=== PATIENT | male | born 1950 | race Caucasian/White ===

== ENCOUNTER 2019-10-25 12:24 | Emergency (ER) | payer MEDICAID, SELFPAY ==
[2019-10-25] VITALS (9 sets, daily range): BP systolic 196–224; BP diastolic 85–145; PULSE 95–163; RESP 18–35; TEMP 36.6; O2SAT 97–100; BMI 15.9
--- NOTE | 2019-10-25 12:55 | CT_ITS ---
WS: [id number] CT ABDOMEN PELVIS TECHNIQUE: Contrast-enhanced CT of the abdomen and pelvis with coronal and sagittal reformatted image s. CLINICAL INFORMATION: diarrhea, abdominal pain COMPARISON: None. DLP: 436.[address] scans at [facility] use at least one of these dose optimization techniques: automat ed exposure control; mA and/or kV adjustment per patient size (includes targeted exams where dose is matched to clinical indication); or iterative reconstruction. FINDINGS: Normal liver. Gallbladder is contracted. Normal portal vein and splenic vein. Right adrenal gland is normal. Normal right renal parenchymal enhancement. Lung bases are well aerated. Small esophageal hiatal hernia. Normal spleen. Delayed nephrogram left kidney with moderate left hydr onephrosis and ureterectasis. Diffuse inflammatory stranding and thickening involving the sigmoid col on suspicious for acute diverticulitis. Enhancing lobulated collection left lower pelvis measures 4.2 x 3.6 cm suspicious for diverticular abscess. This has a complex appearance and exophytic neoplasm i s not excluded. Follow-up with oral contrast may be helpful. Constellation of findings in the pelvis appear to obstruct the left ureter. Upper abdominal aneurysm with mural thrombus measures approximately 3.2 x 2.7 cm. Dense iliac calcification. Diffuse thickenin g of the bladder with submucosal enhancement likely reactive. Calcified enlarged prostate. Heterogene ous prostate enhancement. Prostate measures 3.2 x 4.1 CM. IMPRESSION: 1. Diffuse thickening with enhancement and inflammatory stranding involving the sigmoid colon suspic ious for acute diverticulitis. 2. Lobulated enhancing collection within the left lower pelvis adjacent to the sigmoid colon suspici ous for abscess. This measures 4.2 x 3.6 cm. Exophytic neoplasm not entirely excluded. Follow-up with oral contrast may be helpful. 3. Moderate left hydronephrosis with delayed nephrogram. Left ureter appears to be obstructed by the above-described pelvic process. 4. Diffuse thickening of the bladder wall likely reactive. 5. Enhancing slightly enlarged prostate measuring 3.2 x 4.1 CM. Recommend correlation PSA. 6. 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 Notified Katarzyna Olivera MD [facility] [place] 10/25/2019 3:15 PM.
--- NOTE | 2019-10-25 12:56 | W.ED.GENADLT ---
HPI - General Adult General: Chief complaint: General Medical Stated complaint: H/A, FALL, LEG PAIN Time Seen by Provider: 10/25/19 12:44 History of Present Illness: HPI narrative: Patient is a poor historian. He presents with diarrhea that started about 10 days ago. He has watery stools and is unable to tell me how many a day but he says they are several. No fever, no vomiting, no nausea, no sick contacts. MD complaint: abdominal pain, diarrhea Onset (ago): day(s) (10) Location: abdomen Radiation: non-radiation Severity: moderate Quality: other (difficult to describe) Associated symptoms: Reports malaise; Deny chest pain, confusion, cough, diaphoresis, decreased appetite, dyspnea, fevers/chills, headache(s), nausea, rash, palpitations, seizures, short of breath, vomiting or weakness Review of Systems General: Reports: 10 or more systems reviewed and unremarkable except in HPI and below Const: Reports: malaise; Denies: diaphoresis Eyes: Denies: change in vision or blurry vision ENMT: Denies: throat pain, enlarged tonsils, painful swallowing, hoarseness, mouth pain or swelling of lips/tongue Card: Denies: chest pain or palpitations Resp: Denies: shortness of breath GI: Denies: nausea or vomiting : Denies: flank pain, painful urination, urinary frequency, urinary urgency or urinary hesitancy Musc: Denies: neck pain, back pain or extremity swelling Skin/Breast: Denies: rash, itching or redness Neuro: Denies: headache or confusion Endo: Denies: excessive urination, excessive thirst or tired all the time [facility] ED PFSH: Social History Smoking and tobacco status: current every day smoker Physical Exam Const: COMMON NORMALS: no apparent distress, average body habitus, oriented x3, no limitations, healthy appearing, alert and well nourished HENMT: COMMON NORMALS: normocephalic, head/scalp atraumatic and moist oral mucous membranes HEAD & SCALP: normocephalic and atraumatic Eye: COMMON NORMALS: PERRL, EOMs intact bilaterally, conjunctivae normal and no scleral icterus CONJUNCTIVA: Yes conjunctivae normal PUPIL: Yes PERRL Neck/C-Spine: COMMON NORMALS: full ROM, supple, no meningeal signs, no JVD and no carotid bruits Chest: COMMONS NORMALS: inspection of chest normal and palpation of chest normal Resp: COMMON NORMALS: normal respiratory effort, no retractions, no use of accessory muscles, clear to auscultation bilaterally and percussion normal AUSCULTATION: clear to auscultation bilaterally PERCUSSION: percussion normal Cardio: COMMON NORMALS: no JVD, regular rate, regular rhythm, S1 normal heart sound, S2 normal heart sound, no gallops, no clicks, no murmurs, no rub and peripheral pulses 2+ throughout RATE: regular rate RHYTHM: regular rhythm HEART SOUNDS: S1 normal and S2 normal PERIPHERAL PULSES: pulses 2+ throughout GI: COMMON NORMALS: normal to inspection, nondistended, normoactive bowel sounds, no masses and no bruits PALPATION: Yes tender and Yes guarding : COMMON NORMALS: Yes no CVA tenderness BLADDER/KIDNEY EXAM: Yes no CVA tenderness Back/Pelvis: COMMON NORMALS: no CVA tenderness Extremity: COMMON NORMALS: normal to inspection, full ROM, normal capillary refill, no calf tenderness and no pedal edema Neuro: COMMON NORMALS: oriented x3 SENSORIUM/ORIENTATION: Yes alert MENINGEAL SIGNS: Yes no meningeal signs Skin: COMMON NORMALS: no rashes or lesions noted, no wounds, skin turgor normal, no jaundice, no petechiae and no mottling GENERAL SKIN EXAM: no rashes or lesions noted and turgor normal Course Consultations: Consultation #1: Dr. Luke, hospitalist. Since our urologist is not stonemason apprentice and is out of town the patient will need to be transferred. Time: 15:26 Consultation #2: Dr. Ferguson, general surgeon at [facility] in [place]. He kindly accepted the patient to his service. Dr. Hinton will be the consulting urologist. Time: 16:28 Vital Signs: Vital signs: Vital Signs Temperature 97.8 F 10/25/19 12:30 Pulse Rate 163 H 10/25/19 18:20 Respiratory Rate 30 H 10/25/19 18:19 Blood Pressure 221/145 10/25/19 17:01 Pulse Oximetry 99 10/25/19 18:10 MDM - General Adult MDM Narrative: Medical decision making narrative: 68-year-old gentleman who presents to the emergency department with diarrhea and abdominal pain. On evaluation he has a complicated sigmoid diverticulitis with an abscess formation and inflammatory reaction causing an obstruction of his left ureter with moderate to severe left hydronephrosis. He also has a urinary tract infection. He needs evaluation by general surgeon and a urologist, however we do not have a urologist here in this facility at this time and so he is being transferred to [facility] in [place]. Lab Data: Labs: Lab Results 10/25/19 10/25/19 10/25/19 Range/Units 13:11 13:11 13:11 WBC 11.5 H (4.0-10.0) 10^3/ uL RBC 4.32 (4.1-5.3) 10^6/u L Hgb 12.0 (11.7-16.6) g/dL Hct 36.9 L (42.0-52.0) % MCV 85.4 (80-94) fL MCH 27.8 L (28.0-34.0) pg MCHC 32.5 (30.0-36.0) g/dL RDW 13.1 (12.1-15.1) % Plt Count 574 H (130-400) 10^3/c mm MPV 9.1 (7.4-10.4) fL Neut % (Auto) 83.0 % Lymph % (Auto) 10.4 % [place] % (Auto) 6.0 % Eos % (Auto) 0.1 % Baso % (Auto) 0.2 % Neut # (Auto) 9.5 H (1.8-7.7) 10^3/u L Lymph # (Auto) 1.2 (0.8-4.8) 10^3/u L [place] # (Auto) 0.7 (0.2-0.9) 10^3/u L Eos # (Auto) 0.0 (0.0-0.8) 10^3/u L Baso # (Auto) 0.0 (0.0-0.1) 10^3/u L Nucleated RBC % (a uto) 0 % Nucleated RBCs # 0.0 /100WBC Sodium 126 L (136-145) mmol/L Potassium 3.3 L (3.5-5.1) mmol/L Chloride 83 L (98-107) mmol/L Carbon Dioxide 26 (22-29) mmol/L Anion Gap 20.3 H (5-19) BUN 14 (8-23) mg/dL Creatinine 1.2 (0.7-1.2) mg/dL GFR Calculation 60.6 L (90-130) mL/min Glucose 115 (65-115) mg/dL Calculated Osmolal ity 259 L (285-295) mOsm/k g Lactate 1.5 (0.5-2.2) mmol/L Calcium 9.6 (8.5-10.5) mg/dL Total Bilirubin 0.7 (0.15-1.2) mg/dL AST 18 (0-40) U/L ALT 8 (0-41) U/L Alkaline Phosphata se 144 H (40-130) IU/L Total Protein 8.5 (6.6-8.7) g/dL Albumin 3.9 (3.5-5.2) g/dL Globulin 4.6 (1.3-4.6) g/dL Lipase 15 (13-60) U/L Urine Color (Yellow) Urine Appearance (CLEAR) Urine pH (5-7) Ur Specific Gravit y (1.005-1.030) Urine Protein (Negative) Urine Glucose (UA) (Normal) Urine Ketones (Negative) Urine Blood (Negative) Urine Nitrate (Negative) Urine Bilirubin (NEGATIVE) Urine Urobilinogen (Negative) mg/dL Ur Leukocyte Lad[place] ase (Negative) Urine RBC (0-2) /hpf Urine WBC (0-5) /hpf Ur Squamous Epith Cells (0-5) Amorphous Sediment Urine Bacteria (NONE) 10/25/19 Range/Units 14:30 WBC (4.0-10.0) 10^3/ uL RBC (4.1-5.3) 10^6/u L Hgb (11.7-16.6) g/dL Hct (42.0-52.0) % MCV (80-94) fL MCH (28.0-34.0) pg MCHC (30.0-36.0) g/dL RDW (12.1-15.1) % Plt Count (130-400) 10^3/c mm MPV (7.4-10.4) fL Neut % (Auto) % Lymph % (Auto) % [place] % (Auto) % Eos % (Auto) % Baso % (Auto) % Neut # (Auto) (1.8-7.7) 10^3/u L Lymph # (Auto) (0.8-4.8) 10^3/u L [place] # (Auto) (0.2-0.9) 10^3/u L Eos # (Auto) (0.0-0.8) 10^3/u L Baso # (Auto) (0.0-0.1) 10^3/u L Nucleated RBC % (a uto) % Nucleated RBCs # /100WBC Sodium (136-145) mmol/L Potassium (3.5-5.1) mmol/L Chloride (98-107) mmol/L Carbon Dioxide (22-29) mmol/L Anion Gap (5-19) BUN (8-23) mg/dL Creatinine (0.7-1.2) mg/dL GFR Calculation (90-130) mL/min Glucose (65-115) mg/dL Calculated Osmolal ity (285-295) mOsm/k g Lactate (0.5-2.2) mmol/L Calcium (8.5-10.5) mg/dL Total Bilirubin (0.15-1.2) mg/dL AST (0-40) U/L ALT (0-41) U/L Alkaline Phosphata se (40-130) IU/L Total Protein (6.6-8.7) g/dL Albumin (3.5-5.2) g/dL Globulin (1.3-4.6) g/dL Lipase (13-60) U/L Urine Color Yellow (Yellow) Urine Appearance Turbid (CLEAR) Urine pH 6.5 (5-7) Ur Specific Gravit y 1.015 (1.005-1.030) Urine Protein 1+ H (Negative) Urine Glucose (UA) Norm (Normal) Urine Ketones 1+ H (Negative) Urine Blood 3+ H (Negative) Urine Nitrate Positive H (Negative) Urine Bilirubin 1+ H (NEGATIVE) Urine Urobilinogen 12 H (Negative) mg/dL Ur Leukocyte Ladonna ase 2+ H (Negative) Urine RBC 25-40 H (0-2) /hpf Urine WBC 80-100 H (0-5) /hpf Ur Squamous Epith Cells None (0-5) Amorphous Sediment 2+ Urine Bacteria 4+ H (NONE) Imaging Data^: CT Abd/Pel: Radiologist's impression: [facility] [address] [place] [address] CT Scan Report Signed Patient: Isaak Soriano #: [id number] : 3Acct#:[id number] Age/Sex: 68 / MADM Date: 10/25/19 Loc: ERRoom/Bed: Attending Dr: Ordering Provider/Ordering MD: Katarzyna Olivera MD, [facility] Date of Service: 10/25/19 Procedure(s): CT abdomen pelvis w con* [id number] Accession Number(s): [id number] Report Number: [id number] WS: [id number] CT ABDOMEN PELVIS TECHNIQUE: Contrast-enhanced CT of the abdomen and pelvis with coronal and sagittal reformatted images. CLINICAL INFORMATION: diarrhea, abdominal pain COMPARISON: None. DLP: 436.[address] scans at [facility] use at least one of these dose optimization techniques: automated exposure control; mA and/or kV adjustment per patient size (includes targeted exams where dose is matched to clinical indication); or iterative reconstruction. FINDINGS: Normal liver. Gallbladder is contracted. Normal portal vein and splenic vein. Right adrenal gland is normal. Normal right renal parenchymal enhancement. Lung bases are well aerated. Small esophageal hiatal hernia. Normal spleen. Delayed nephrogram left kidney with moderate left hydronephrosis and ureterectasis. Diffuse inflammatory stranding and thickening involving the sigmoid colon suspicious for acute diverticulitis. Enhancing lobulated collection left lower pelvis measures 4.2 x 3.6 cm suspicious for diverticular abscess. This has a complex appearance and exophytic neoplasm is not excluded. Follow-up with oral contrast may be helpful. Constellation of findings in the pelvis appear to obstruct the left ureter. Upper abdominal aneurysm with mural thrombus measures approximately 3.2 x 2.7 cm. Dense iliac calcification. Diffuse thickening of the bladder with submucosal enhancement likely reactive. Calcified enlarged prostate. Heterogeneous prostate enhancement. Prostate measures 3.2 x 4.1 CM. IMPRESSION: 1. Diffuse thickening with enhancement and inflammatory stranding involving the sigmoid colon suspicious for acute diverticulitis. 2. Lobulated enhancing collection within the left lower pelvis adjacent to the sigmoid colon suspicious for abscess. This measures 4.2 x 3.6 cm. Exophytic neoplasm not entirely excluded. Follow-up with oral contrast may be helpful. 3. Moderate left hydronephrosis with delayed nephrogram. Left ureter appears to be obstructed by the above-described pelvic process. 4. Diffuse thickening of the bladder wall likely reactive. 5. Enhancing slightly enlarged prostate measuring 3.2 x 4.1 CM. Recommend correlation PSA. 6. 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 Notified Katarzyna Olivera MD [facility] at 10/25/2019 3:15 PM. Dictated By:Marcial Young MD Signed By:Marcial Young MDSigned Date/Time:10/25/19 1518 DD/ 1447 EKG Data^: EKG 1: Attestation: I personally reviewed and interpreted this EKG as follows: EKG interpretation date: 10/25/19 EKG interpretation time: 18:46 Prior EKG tracings: not available for review Interpretation: sinus tachycardia HR [address] elevation or depression. Discharge Plan Discharge Patient Disposition: Xfer Short-Term Hosp Clinical Impression: Obstruction of left ureter, Acute pyelonephritis, Acute hyponatremia, Acute hypokalemia Diverticulitis of intestine with abscess Qualifiers: Diverticulitis site: large intestine Diverticulitis bleeding: without bleeding Qualified Code(s): K57.20 - Diverticulitis of large intestine with perforation and abscess without bleeding Hydronephrosis Qualifiers: Hydronephrosis type: other Qualified Code(s): N13.39 - Other hydronephrosis Condition: Stable Discharge Orders: Transfer Out of Facility (Order); Ordered 10/25/19 Ordered By: Katarzyna Olivera Discharge Date/Time: 10/25/19 18:50 Coding Level of Care Code ED Modeling Manager for Chg Fwd Exam Comprehensive
[2019-10-25 13:38] LABS: Basophils % 0.2 %; Eosinophils % 0.1 %; Hematocrit 36.9 % (42.0-52.0); Lymphocytes # 1.2 10^3/uL (0.8-4.8); Lymphocytes % 10.4 %; Mean Corpuscular HGB Conc 32.5 g/dL (30.0-36.0); Mean Corpuscular Hemoglobin 27.8 pg (28.0-34.0); Mean Corpuscular Volume 85.4 fL (80-94); Mean Platelet Volume 9.1 fL (7.4-10.4); Monocytes # 0.7 10^3/uL (0.2-0.9); Neutrophils # 9.5 10^3/uL (1.8-7.7); Nucleated Red Blood Cells % 0 %; Platelet Count 574 10^3/cmm (130-400); Red Blood Count 4.32 10^6/uL (4.1-5.3); Red Cell Distribution Width 13.1 % (12.1-15.1); White Blood Count 11.5 10^3/uL (4.0-10.0)
[2019-10-25 14:00] LABS: Alanine Aminotransferase 8 U/L (0-41); Albumin Level 3.9 g/dL (3.5-5.2); Alkaline Phosphatase 144 IU/L (40-130); Anion Gap 20.3 (5-19); Aspartate Amino Transferase 18 U/L (0-40); Blood Urea Nitrogen 14 mg/dL (8-23); Calcium 9.6 mg/dL (8.5-10.5); Carbon Dioxide 26 mmol/L (22-29); Chloride 83 mmol/L (98-107); Globulin 4.6 g/dL (1.3-4.6); Glomerular Filtration Rate 60.6 mL/min (90-130); Glucose 115 mg/dL (65-115); Lipase 15 U/L (13-60); Osmolality Calculated 259 mOsm/kg (285-295); Potassium 3.3 mmol/L (3.5-5.1); Sodium 126 mmol/L (136-145); Total Bilirubin 0.7 mg/dL (0.15-1.2); Total Protein 8.5 g/dL (6.6-8.7)
[2019-10-25 14:01] LABS: Lactate (Lactic Acid level) 1.5 mmol/L (0.5-2.2)
[2019-10-25] MEDS: iohexol 300 mg/mL 100 mL Btl IV (14:21)
--- NOTE | 2019-10-25 14:21 | PC.NURSE ---
pt transported to CT by stretcher with tech
--- NOTE | 2019-10-25 14:38 | PC.SOCIAL ---
Call received by Christie at [facility]. She verbalized being told that patient has not been seen by provider in a long time and he is not doing well. This contact mentioned he would possibly want Hospice however, pt would need to have a diagnosis that qualifies. If patient is admitted CM/ SS will follow up once more information is obtained and verified.
[2019-10-25 14:46] LABS: Glucose Urine UA Norm (Normal); Ketones Urine 1+ (Negative); Protein Urine 1+ (Negative); Specific Gravity, Urine 1.015 (1.005-1.030); Urine Appearance Turbid (CLEAR); Urine Color Yellow (Yellow); pH Urine 6.5 (5-7)
[2019-10-25 14:47] LABS: Add Urine Microscopic? YES; Bilirubin Urine 1+ (NEGATIVE); Blood Urine 3+ (Negative); Leukocyte Esterase Urine 2+ (Negative); Nitrate Urine Positive (Negative); Urobilinogen Urine 12 mg/dL (Negative)
[2019-10-25] MEDS: sodium chloride 0.9% 1,000 ML 999 ML IV (14:56)
[2019-10-25 14:59] LABS: Add Urine Culture? Yes; Amorphous Sediment Urine 2+; Bacteria Urine 4+; RBC Urine 25-40 /hpf (0-2); WBC Urine 80-100 /hpf (0-5)
[2019-10-25] MEDS: ciprofloxacin 400 MG/200 ML PREMIX 200 MG IV (15:45)
[2019-10-25] MEDS: hyDRALAzine 20 mg/mL INJ 1 mL 10 MG IVP (17:05)
[2019-10-25] MEDS: metroNIDAZOLE IV 500 MG/100 ML PREMIX 100 MG IV (17:05)
--- NOTE | 2019-10-25 17:05 | PC.NURSE ---
pt up to commode with diarrhea. Pt appeared very out of breath. Nurse placed pt on traffic monitor specialist and pt in Afib with RVR with heartrate of 155. ED provider notified and in room. Pt placed on NC 4L
[2019-10-25] MEDS: ipratropium-albuterol 3 mL Neb INHALATION (18:10)
--- NOTE | 2019-10-25 18:18 | ECG_ITS ---
Measurements Intervals [place] Rate: 144 P: 79 TN: 124 QRS: 64 QRSD: 81 T: 82 QT: 342 QTc: 530 SINUS TACHYCARDIA, POSSIBLE ATRIAL FLUTTER NONSPECIFIC T-WAVE ABNORMALITY ABNORMAL RHYTHM ECG INTERPRETATION BASED ON A DEFAULT AGE OF 40 YEARS No previous ECG available for comparison Electronically Signed On 10-26-2019 17:00:10 CDT by Arden Posada M.D. [email or web address]
== END 2019-10-25 18:50 | disposition short-term general hospital (02) ==
PROVIDERS: Emergency Provider Family Medicine
DX: N13.1 Hydronephrosis with ureteral stricture, not elsewhere classified (principal); N10 Acute pyelonephritis; E87.1 Hypo-osmolality and hyponatremia; E87.6 Hypokalemia; K57.20 Diverticulitis of large intestine with perforation and abscess without bleeding; F17.200 Nicotine dependence, unspecified, uncomplicated
CPT/HCPCS: 12345; 74177; 80053; 81001; 83605; 83690; 85025; 87077; 87086; 87186; 93005; 94640; 96360; 96361; 96365; 96368; 96375; 99284; 99285; A9270; J0360; J0744; J3490; J7030; Q9967; S0030

== ENCOUNTER 2019-11-21 13:13 | Inpatient (IN) | payer MEDICAID, SELFPAY ==
[2019-11-21] VITALS (34 sets, daily range): BP systolic 97–158; BP diastolic 57–99; PULSE 52–68; RESP 0–26; TEMP 36.7; O2SAT 98–100; BMI 16.2
--- NOTE | 2019-11-21 13:32 | ECG_ITS ---
Measurements Intervals [place] Rate: 59 P: 82 WV: 139 QRS: 24 QRSD: 80 T: 234 QT: 542 QTc: 541 SINUS BRADYCARDIA POSSIBLE RIGHT ATRIAL ENLARGEMENT [0.25mV P WAVE] ANTERIOR MYOCARDIAL INFARCTION , PROBABLY RECENT [40+ ms Q WAVE AND/OR ST/T ABNO ABNORMALITY IN V3/V4] INFERIOR MYOCARDIAL INFARCTION , OF INDETERMINATE AGE [40+ ms Q WAVE AND/OR ST/T ABNORMALITY IN II/aVF] Compared to ECG 10/25/2019 18:46:42 Myocardial infarct finding now present T-wave abnormality no longer present Electronically Signed On 11-21-2019 17:12:58 CDT by Nik Ashraf M.D. [id number] f
--- NOTE | 2019-11-21 13:32 | XR_ITS ---
WS: [id number] XR chest 1V portable [id number] REASON FOR EXAM: chest pain FINDINGS: Chronic obstructive pulmonary disease findings are noted. The heart is not enlarged there is arteriosclerotic changes seen. The emphysema this changes have progressed since June 06, 2013. XR/XR chest 1V portable [id number] IMPRESSION: Increased chronic obstructive pulmonary disease. Arteriosclerotic changes. No pneumothorax is seen.
[2019-11-21] MEDS: clopidogrel 300 mg Tablet 600 MG PO (13:40)
[2019-11-21] MEDS: heparin 5,000 unit/mL INJ 1 mL 2900 UNIT IVP (13:41)
--- NOTE | 2019-11-21 13:42 | ED_ITS ---
Documented by User: Jerome Brothers DO 11/21/19 15:16 HPI - Chest Pain General: Chief Complaint: Chest Pain Stated Complaint: CHEST PAIN Time Seen by Provider: 11/21/19 13:14 History of Present Illness: HPI narrative: 68-year-old male comes in complaining of chest pain states chest pain started yesterday around 1:00. Is been intermittent since then he denies any dyspnea he is not had any fevers been very nauseous but no vomiting or diarrhea he is in the care home about a month ago he was here at the hospital and was transferred to an outside facility he had a diverticulitis with an abscess and obstructed ureter ultimately ended up getting a colostomy. He has no previous history of coronary artery disease. He did get nauseous with this but no shortness of breath. He still is having some chest discomfort. Associated symptoms: Reports nausea; Deny abdominal pain, dyspnea, fever(s) or vomiting Review of Systems Const: Denies: fever, chills, body aches, change in appetite, fatigue or malaise ENMT: Denies: throat pain, ear pain, nasal discharge or nasal congestion Card: Reports: chest pain; Denies: edema, shortness of breath on exertion or shortness of breath when lying down Resp: Denies: shortness of breath, productive cough or non-productive cough GI: Reports: nausea; Denies: abdominal pain, vomiting, vomiting blood, coffee grounds in vomit, diarrhea, constipation, bloating, blood in stool or black tarry stool : Denies: flank pain, painful urination, urinary frequency or urinary urgency Skin/Breast: Denies: rash or itching PFSH ED PFSH: Social History Smoking and tobacco status: current every day smoker Physical Exam Const: COMMON NORMALS: no apparent distress GENERAL APPEARANCE: cooperative and comfortable ORIENTATION/CONSCIOUSNESS: Yes awake, Yes oriented to person, Yes oriented to place and Yes oriented to time HENMT: COMMON NORMALS: normocephalic, head/scalp atraumatic, hearing grossly normal bilaterally, external ears normal, EAC's normal, TM's normal bilaterally, nasal mucous membranes and turbinates normal, moist oral mucous membranes and oropharynx normal HEAD & SCALP: normocephalic and atraumatic NOSE: nasal mucous membranes and turbinates normal EXTERNAL EAR: Yes external ears normal EXTERNAL AUDITORY CANAL: EAC's normal TYMPANIC MEMBRANE: TM's normal bilaterally Eye: COMMON NORMALS: PERRL, EOMs intact bilaterally, conjunctivae normal and no scleral icterus CONJUNCTIVA: Yes conjunctivae normal PUPIL: Yes PERRL Neck/C-Spine: COMMON NORMALS: full ROM, no lymphadenopathy, supple and no JVD Lymph: LYMPHATIC: no lymphadenopathy noted and no lymphedema noted Resp: COMMON NORMALS: normal respiratory effort, no retractions, no use of accessory muscles and clear to auscultation bilaterally AUSCULTATION: clear to auscultation bilaterally Cardio: COMMON NORMALS: no JVD, regular rate, regular rhythm and no murmurs RATE: regular rate RHYTHM: regular rhythm GI: COMMON NORMALS: soft to palpation and no hepatosplenomegaly AUSCULTATION: Yes normoactive bowel sounds PALPATION: Yes soft, No tender, No guarding and Yes no hepatosplenomegaly Extremity: COMMON NORMALS: normal to inspection, normal capillary refill, no clubbing, cyanosis or edema, no calf tenderness and no pedal edema Neuro: SENSORIUM/ORIENTATION: Yes oriented to person, Yes oriented to place and Yes oriented to time Skin: COMMON NORMALS: no rashes or lesions noted GENERAL SKIN EXAM: no rashes or lesions noted Course Vital Signs: Vital signs: Vital Signs Temperature 98.0 F 11/21/19 13:14 Pulse Rate 67 11/21/19 14:33 Respiratory Rate 22 H 11/21/19 14:55 Blood Pressure 132/70 11/21/19 14:33 Pulse Oximetry 100 11/21/19 14:55 MDM - Chest Pain MDM Narrative: Medical decision making narrative: EKG shows acute ST elevation in V23 and 4. He also has inverted T waves in all of the precordial leads as well as in 1 2 3 and aVF. This represents an acute change from an EKG done in October 20082019. STEMI alert was called Dr. Jones came down and seen the patient interviewed himself and did a history. At this point since he is over 24 hours in the process he does not recommend going directly to the Al[facility]ic recommends a rule out and then further evaluation and will consult. He recommends hospitalization with cardiology. 1502: Resulted in 900 patient is still having pain and actually is increasing is given another dose of morphine EKG repeated still shows ST elevation T diffuse T wave inversion. Called Dr. Jones again reviewed the findings he is planning to take patient to the [facility]ic. Lab Data: Labs: Lab Results 11/21/19 11/21/19 11/21/19 Range/Units 14:05 14:05 14:05 WBC 11.2 H (4.0-10.0) 10^3/ uL RBC 4.12 (4.1-5.3) 10^6/u L Hgb 12.4 (11.7-16.6) g/dL Hct 37.4 L (42.0-52.0) % MCV 90.8 (80-94) fL MCH 30.1 (28.0-34.0) pg MCHC 33.2 (30.0-36.0) g/dL RDW 19.7 H (12.1-15.1) % Plt Count 268 (130-400) 10^3/c mm MPV 10.9 H (7.4-10.4) fL Neut % (Auto) 73.4 % Lymph % (Auto) 15.6 % Ro[place] % (Auto) 9.3 % Eos % (Auto) 1.0 % Baso % (Auto) 0.2 % Neut # (Auto) 8.2 H (1.8-7.7) 10^3/u L Lymph # (Auto) 1.7 (0.8-4.8) 10^3/u L Rolette # (Auto) 1.0 H (0.2-0.9) 10^3/u L Eos # (Auto) 0.1 (0.0-0.8) 10^3/u L Baso # (Auto) 0.0 (0.0-0.1) 10^3/u L Nucleated RBC % (a uto) 0 % Nucleated RBCs # 0.0 /100WBC PT 14.80 H (10.5-13.3) SECO NDS INR 1.13 (0.8-1.2) APTT 58.0 H (23.9-36.7) SECO NDS D-Dimer 3.35 H (0-0.59) ug/mIFE U Sodium 128 L (136-145) mmol/L Potassium 4.1 (3.5-5.1) mmol/L Chloride 94 L (98-107) mmol/L Carbon Dioxide 20 L (22-29) mmol/L Anion Gap 18.1 (5-19) BUN 14 (8-23) mg/dL Creatinine 0.6 L (0.7-1.2) mg/dL GFR Calculation 134.8 H (90-130) mL/min Glucose 127 H (65-115) mg/dL Calculated Osmolal ity 264 L (285-295) mOsm/k g Calcium 8.0 L (8.5-10.5) mg/dL Total Bilirubin 0.7 (0.15-1.2) mg/dL AST 153 H (0-40) U/L ALT 36 (0-41) U/L Alkaline Phosphata se 156 H (40-130) IU/L Troponin T Baselin e (0-15) ng/mL NT-Pro-B Natriuret Pep 74680 H (0-125) pg/mL Total Protein 6.9 (6.6-8.7) g/dL Albumin 3.1 L (3.5-5.2) g/dL Globulin 3.8 (1.3-4.6) g/dL Lipase 54 (13-60) U/L 11/21/19 Range/Units 14:05 WBC (4.0-10.0) 10^3/ uL RBC (4.1-5.3) 10^6/u L Hgb (11.7-16.6) g/dL Hct (42.0-52.0) % MCV (80-94) fL MCH (28.0-34.0) pg MCHC (30.0-36.0) g/dL RDW (12.1-15.1) % Plt Count (130-400) 10^3/c mm MPV (7.4-10.4) fL Neut % (Auto) % Lymph % (Auto) % Rolette % (Auto) % Eos % (Auto) % Baso % (Auto) % Neut # (Auto) (1.8-7.7) 10^3/u L Lymph # (Auto) (0.8-4.8) 10^3/u L Rolette # (Auto) (0.2-0.9) 10^3/u L Eos # (Auto) (0.0-0.8) 10^3/u L Baso # (Auto) (0.0-0.1) 10^3/u L Nucleated RBC % (a uto) % Nucleated RBCs # /100WBC PT (10.5-13.3) SECO NDS INR (0.8-1.2) APTT (23.9-36.7) SECO NDS D-Dimer (0-0.59) ug/mIFE U Sodium (136-145) mmol/L Potassium (3.5-5.1) mmol/L Chloride (98-107) mmol/L Carbon Dioxide (22-29) mmol/L Anion Gap (5-19) BUN (8-23) mg/dL Creatinine (0.7-1.2) mg/dL GFR Calculation (90-130) mL/min Glucose (65-115) mg/dL Calculated Osmolal ity (285-295) mOsm/k g Calcium (8.5-10.5) mg/dL Total Bilirubin (0.15-1.2) mg/dL AST (0-40) U/L ALT (0-41) U/L Alkaline Phosphata se (40-130) IU/L Troponin T Baselin e 920 H* (0-15) ng/mL NT-Pro-B Natriuret Pep (0-125) pg/mL Total Protein (6.6-8.7) g/dL Albumin (3.5-5.2) g/dL Globulin (1.3-4.6) g/dL Lipase (13-60) U/L Discharge Plan Discharge Patient Disposition: Admitted As Inpatient Clinical Impression: ST elevation myocardial infarction (STEMI) Condition: Stable Prescriptions: No Action Catapres 0.1 mg Tablet 0.1 mg PO Q8H RF: 0 Tylenol 325 mg Tablet 325 mg PO Q6H PRN (Reason: unknown) RF: 0 Miralax 17 gram Powder In Packet 17 g PO DAILY PRN (Reason: Constipation) RF: 0 aspirin 325 mg Tablet 325 mg PO DAILY RF: 0 Pepcid 40 mg Tablet 40 mg PO DAILY RF: 0 Senna-S 8.6-50 mg Tablet 1 tab PO BID PRN (Reason: Constipation) RF: 0 Milk of Magnesia 400 mg/5 mL Suspension 30 ml PO PRN RF: 0 Colace 100 mg Capsule See Rx Instructions .ROUTE .COMPLEX RF: 0 furosemide 20 mg Tablet 20 mg PO DAILY RF: 0 albuterol sulfate 90 mcg/actuation Hfa Aerosol Inhaler 2 puff INHALATION Q6H PRN (Reason: Shortness Of Breath) RF: 0 Breo Ellipta 100-25 mcg/dose Blister With Device 1 inh INHALATION DAILY RF: 0 metoprolol tartrate 75 mg Tablet 75 mg PO BID RF: 0 Coding Level of Care Code ED English Composition Instructor for Chg Fwd Exam Comprehensive Documented by User: Adrianne Justice MD 11/21/19 14:06 HPI - Chest Pain General: Chief Complaint: Chest Pain Stated Complaint: CHEST PAIN Time Seen by Provider: 11/21/19 13:14 PFSH ED PFSH: Social History Smoking and tobacco status: current every day smoker Course Vital Signs: Vital signs: Vital Signs Temperature 98.0 F 11/21/19 13:14 Pulse Rate 67 11/21/19 14:33 Respiratory Rate 22 H 11/21/19 14:55 Blood Pressure 132/70 11/21/19 14:33 Pulse Oximetry 100 11/21/19 14:55 MDM - Chest Pain Lab Data: Labs: Lab Results 11/21/19 11/21/19 11/21/19 Range/Units 14:05 14:05 14:05 WBC 11.2 H (4.0-10.0) 10^3/ uL RBC 4.12 (4.1-5.3) 10^6/u L Hgb 12.4 (11.7-16.6) g/dL Hct 37.4 L (42.0-52.0) % MCV 90.8 (80-94) fL MCH 30.1 (28.0-34.0) pg MCHC 33.2 (30.0-36.0) g/dL RDW 19.7 H (12.1-15.1) % Plt Count 268 (130-400) 10^3/c mm MPV 10.9 H (7.4-10.4) fL Neut % (Auto) 73.4 % Lymph % (Auto) 15.6 % Rolette % (Auto) 9.3 % Eos % (Auto) 1.0 % Baso % (Auto) 0.2 % Neut # (Auto) 8.2 H (1.8-7.7) 10^3/u L Lymph # (Auto) 1.7 (0.8-4.8) 10^3/u L Rolette # (Auto) 1.0 H (0.2-0.9) 10^3/u L Eos # (Auto) 0.1 (0.0-0.8) 10^3/u L Baso # (Auto) 0.0 (0.0-0.1) 10^3/u L Nucleated RBC % (a uto) 0 % Nucleated RBCs # 0.0 /100WBC PT 14.80 H (10.5-13.3) SECO NDS INR 1.13 (0.8-1.2) APTT 58.0 H (23.9-36.7) SECO NDS D-Dimer 3.35 H (0-0.59) ug/mIFE U Sodium 128 L (136-145) mmol/L Potassium 4.1 (3.5-5.1) mmol/L Chloride 94 L (98-107) mmol/L Carbon Dioxide 20 L (22-29) mmol/L Anion Gap 18.1 (5-19) BUN 14 (8-23) mg/dL Creatinine 0.6 L (0.7-1.2) mg/dL GFR Calculation 134.8 H (90-130) mL/min Glucose 127 H (65-115) mg/dL Calculated Osmolal ity 264 L (285-295) mOsm/k g Calcium 8.0 L (8.5-10.5) mg/dL Total Bilirubin 0.7 (0.15-1.2) mg/dL AST 153 H (0-40) U/L ALT 36 (0-41) U/L Alkaline Phosphata se 156 H (40-130) IU/L Troponin T Baselin e (0-15) ng/mL NT-Pro-B Natriuret Pep 00234 H (0-125) pg/mL Total Protein 6.9 (6.6-8.7) g/dL Albumin 3.1 L (3.5-5.2) g/dL Globulin 3.8 (1.3-4.6) g/dL Lipase 54 (13-60) U/L /01/04 Range/Units 14:05 WBC (4.0-10.0) 10^3/ uL RBC (4.1-5.3) 10^6/u L Hgb (11.7-16.6) g/dL Hct (42.0-52.0) % MCV (80-94) fL MCH (28.0-34.0) pg MCHC (30.0-36.0) g/dL RDW (12.1-15.1) % Plt Count (130-400) 10^3/c mm MPV (7.4-10.4) fL Neut % (Auto) % Lymph % (Auto) % [place] % (Auto) % Eos % (Auto) % Baso % (Auto) % Neut # (Auto) (1.8-7.7) 10^3/u L Lymph # (Auto) (0.8-4.8) 10^3/u L [place]lette # (Auto) (0.2-0.9) 10^3/u L Eos # (Auto) (0.0-0.8) 10^3/u L Baso # (Auto) (0.0-0.1) 10^3/u L Nucleated RBC % (a uto) % Nucleated RBCs # /100WBC PT (10.5-13.3) SECO NDS INR (0.8-1.2) APTT (23.9-36.7) SECO NDS D-Dimer (0-0.59) ug/mIFE U Sodium (136-145) mmol/L Potassium (3.5-5.1) mmol/L Chloride (98-107) mmol/L Carbon Dioxide (22-29) mmol/L Anion Gap (5-19) BUN (8-23) mg/dL Creatinine (0.7-1.2) mg/dL GFR Calculation (90-130) mL/min Glucose (65-115) mg/dL Calculated Osmolal ity (285-295) mOsm/k g Calcium (8.5-10.5) mg/dL Total Bilirubin (0.15-1.2) mg/dL AST (0-40) U/L ALT (0-41) U/L Alkaline Phosphata se (40-130) IU/L Troponin T Baselin e 920 H* (0-15) ng/mL NT-Pro-B Natriuret Pep (0-125) pg/mL Total Protein (6.6-8.7) g/dL Albumin (3.5-5.2) g/dL Globulin (1.3-4.6) g/dL Lipase (13-60) U/L Discharge Plan Discharge Patient Disposition: Admitted As Inpatient Clinical Impression: ST elevation myocardial infarction (STEMI) Condition: Stable Prescriptions: No Action Catapres 0.1 mg Tablet 0.1 mg PO Q8H RF: 0 Tylenol 325 mg Tablet 325 mg PO Q6H PRN (Reason: unknown) RF: 0 Miralax 17 gram Powder In Packet 17 g PO DAILY PRN (Reason: Constipation) RF: 0 aspirin 325 mg Tablet 325 mg PO DAILY RF: 0 Pepcid 40 mg Tablet 40 mg PO DAILY RF: 0 Senna-S 8.6-50 mg Tablet 1 tab PO BID PRN (Reason: Constipation) RF: 0 Milk of Magnesia 400 mg/5 mL Suspension 30 ml PO PRN RF: 0 Colace 100 mg Capsule See Rx Instructions .ROUTE .COMPLEX RF: 0 furosemide 20 mg Tablet 20 mg PO DAILY RF: 0 albuterol sulfate 90 mcg/actuation Hfa Aerosol Inhaler 2 puff INHALATION Q6H PRN (Reason: Shortness Of Breath) RF: 0 Breo Ellipta 100-25 mcg/dose Blister With Device 1 inh INHALATION DAILY RF: 0 metoprolol tartrate 75 mg Tablet 75 mg PO BID RF: 0 Coding Level of Care Code ED English Composition Instructor for Chg Fwd Exam Comprehensive
[2019-11-21] MEDS: sodium chloride 0.9% 1,000 ML 999 ML IV (13:45)
[2019-11-21] MEDS: sodium chloride 0.9% 500 ML 999 ML IV (13:46)
[2019-11-21] MEDS: nitroglycerin 1 gm/inch oint Pkt 1 INCH TOPICAL (14:10)
[2019-11-21 14:19] LABS: Basophils % 0.2 %; Eosinophils # 0.1 10^3/uL (0.0-0.8); Hematocrit 37.4 % (42.0-52.0); Hemoglobin 12.4 g/dL (11.7-16.6); Lymphocytes # 1.7 10^3/uL (0.8-4.8); Lymphocytes % 15.6 %; Mean Corpuscular HGB Conc 33.2 g/dL (30.0-36.0); Mean Corpuscular Hemoglobin 30.1 pg (28.0-34.0); Mean Corpuscular Volume 90.8 fL (80-94); Mean Platelet Volume 10.9 fL (7.4-10.4); Monocytes % 9.3 %; Neutrophils # 8.2 10^3/uL (1.8-7.7); Neutrophils % 73.4 %; Nucleated Red Blood Cells % 0 %; Platelet Count 268 10^3/cmm (130-400); Red Blood Count 4.12 10^6/uL (4.1-5.3); Red Cell Distribution Width 19.7 % (12.1-15.1); White Blood Count 11.2 10^3/uL (4.0-10.0)
[2019-11-21 14:48] LABS: D Dimer 3.35 ug/mIFEU (0-0.59); INR 1.13 (0.8-1.2)
[2019-11-21] MEDS: morphine 4 mg/mL SDV 1 mL IVP (14:55)
[2019-11-21 14:56] LABS: Troponin(5th) Baseline 920 ng/mL (0-15)
[2019-11-21 15:02] LABS: Alanine Aminotransferase 36 U/L (0-41); Albumin Level 3.1 g/dL (3.5-5.2); Alkaline Phosphatase 156 IU/L (40-130); Anion Gap 18.1 (5-19); Aspartate Amino Transferase 153 U/L (0-40); Blood Urea Nitrogen 14 mg/dL (8-23); Carbon Dioxide 20 mmol/L (22-29); Chloride 94 mmol/L (98-107); Creatinine Clr Calc Pharmacy 53.6115; Globulin 3.8 g/dL (1.3-4.6); Glomerular Filtration Rate 134.8 mL/min (90-130); Glucose 127 mg/dL (65-115); Lipase 54 U/L (13-60); NT Pro B Type Natriuretic Pept 10742 pg/mL (0-125); Osmolality Calculated 264 mOsm/kg (285-295); Potassium 4.1 mmol/L (3.5-5.1); Sodium 128 mmol/L (136-145); Total Bilirubin 0.7 mg/dL (0.15-1.2); Total Protein 6.9 g/dL (6.6-8.7)
--- NOTE | 2019-11-21 15:07 | PC.NURSE ---
SECOND STEMI CALLED
[2019-11-21 15:19] LABS: Creatine Phosphokinase 1369 U/L (39-308)
--- NOTE | 2019-11-21 15:26 | XACV_ITS ---
Ht: 160 cm Wt: 42 kg BSA: 1.35 m2 Gender: Male : 1950 Any Known Allergies: No known allergies Exam Priority: Routine Indication(s): - Elevated troponin - NSTEMI Procedure(s): Procedure Description: Diagnostic procedure Procedure Description: PCI procedure Procedure Description: Drug Eluting Coronary Stent Procedure Description: Coronary Angiography Diagnostic Cath Status: Urgent Diagnostic Findings LM has 0% stenosis. CX has 0% stenosis. RCA has 0% stenosis. mLAD: Mild 20% stenosis, BEBA: 3 flow. 1st Diagonal Coronary Artery: Severe 90% stenosis, BEBA: 2 flow. Coronary angiography shows left dominance. PCI Status: Urgent PCI Indication: NSTE - ACS Interventional Findings 1st Diagonal Coronary Artery: 90% stenosis treated with MDT R SHABNAM 2.5X15 NADIR and MDT NC EUPHORA RX [id number] BALLOON. 0% residual stenosis, BEBA: 3 flow. 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 Diagonal 1 is moderate size and long vessel it has proximal 90% eccentric lesion which is the culprit vessel with BEBA II flow #3 Left circumflex is a dominant vessel with luminal irregularities#4 RCA is nondominant very small vessel with diffuse luminal irregularities. There is mild coronary artery disease with one vessel disease. 1st Diagonal Coronary Artery was treated with Drug Eluting Stent and Balloon. Recommendations 1-Return to inpatient for close monitoring and routine cath care 2-Risk factor modification for secondary prevention 3-Statin and aspirin 81 mg life--long, if tolerated 4-Patient was pre-loaded with 600 mg of Plavix, continue Plavix 75mg p.o. daily for at least one year. We will assess at the end of one year again to continue if further or not 5-Continue optimal medical management 6-Follow up with Dr. Chow in four weeks and your primary care in 10 days . Diagnostic RX Recommendation: PCI w/o planned CABG Pressures Phase:Rest AO : 121 mmHg / 48 mmHg ( 77 mmHg ) @ 11:28:00 AM 136 mmHg / 61 mmHg ( 92 mmHg ) @ 11:38:00 AM 221 mmHg / 92 mmHg ( 141 mmHg ) @ 11:43:00 AM 162 mmHg / 67 mmHg ( 105 mmHg ) @ 11:46:00 AM 125 mmHg / 54 mmHg ( 82 mmHg ) @ 11:57:00 AM Clinical Evaluation EBL: 5mL-10mL Procedural Details Procedure Consent Obtained. Pre-Procedure Time Out. Identified patient by full name and date of as verbalized by the patient/guarantor. Does the consent match the physician's order: Yes. Accurate & Complete Informed Consent: Yes. Inpatient/Outpatient History & Physical on Chart: Yes. Visualize and Verify Site with Patient/Guarantor: N/A. Relevant Radiology Images available: N/A. Pre-op teaching completed and patient verbalized understanding. The risks, benefits, and alternatives of sedation and/or procedure were discussed by physician. The patient agrees to continue. Procedure started. [facility] Clinical Fraility Score: 7: Severely Frail. Relief Mate Indications: ACS <= 24 hours. Chest Pain Symptom Assessment: Typical Angina Symptoms. Cardiovascular Instability: Yes, if yes, Hemodynamic Instability. Correct patient, site and procedure confirmed by cath team. Current diagnosis: NSTEMI. PERRLA. Strong, equal hand splitting machine operator helper bilaterally. Lungs clear x 5 lobes. IV Site on Arrival: 20 gauge in the left anticubital. Pre Procedural Pulses: bilateral dorsalis pedis was Doppled. Pre Procedural Pulses: bilateral posterior tibial was Doppled. Oxygen started at 2liters/min via nasal canula. right radial was prepped with chloroprep then draped in the usual sterile fashion. Baseline sample Acquired. HR: 58 BPM. Physician notified. Current Diagnosis : NSTEMI. Equipment: 6F - Radial. Cardiac Cath Pack. ACIST Manifold Kit Model BT 2000. Heparinized Saline (2 units/mL), 1000 mL bag. Physician arrived. Physician scrubbed in. Immediate Pre-Procedure Time Out. Correct Patient: Yes; Correct Procedure: Yes; Correct Site: Yes; Correct Patient Position: Yes; Correct Supplies: Yes; Dried Flammable Prep: Yes; Blood Products Available: N/A;. Lidocaine 1% infiltrated to the right radial. Unable to obtain radial access. MD attempting to gain access in the Femoral artery. Lidocaine 1% infiltrated to the left groin. Arterial access obtained with micropuncture set. Hand injection through sheath of Left Common Iliac. 6 australian XB 3 guide catheter was inserted over the glidewire. Multiple views taken of left coronary artery. Catheter out. A CRD 6F JR4 100cm Diagnostic Catheter was advanced over the wire and used for Right coronary angiography. Multiple views taken of right coronary artery. 6 australian XB 3 guide catheter was inserted over the wire. Pt went in vfib. Ap pads applied. Pt countershocked at 120 J. Pt in normal sinus. Inflation Number : 1 A MDT R SHABNAM 2.5X15 NADIR -Lot Number# [id number], Exp 07/03/2021 was prepped and advanced across the 1st Diag. The stent was deployed at 15 CARINE for 0:20 seconds. Stent balloon out over wire. Results checked. Balloon inserted to lesion in the mid LAD. ACT drawn. Results 304 seconds. Therapeutic limits - pre-heparin administration 90-150 seconds and monitoring heparin during a vascular procedure >250 seconds. Inflation number : 2 A MDT NC EUPHORA RX [id number] BALLOON was prepped and advanced across the 1st Diag , then inflated to 14 CARINE for 0:18 seconds. Inflation number: 3 The MDT NC EUPHORA RX [id number] BALLOON was reinflated across the 1st Diag, to 16 CARINE for 0:10 seconds. Balloon out. [place] repositioned to mid LAD. Unable to cross lesion, guidewire removed. Wire out. Guide catheter out. A Suture was successful obtaining hemostatsis at the Left Femoral artery insertion site. Sheath(s) sutured into position with 2-0 silk and sterile 4x4's and Op-site applied over the site. No oozing or signs and symptoms of hematoma noted. Arterial sheath flushed and connected to tranducer and pressure bag with heparinized saline. Post Procedure: Pulses reassessed and unchanged. PERRLA. Strong, equal hand splitting machine operator helper bilaterally. No VTE prophylaxis required. Medication's Wasted: Lidocaine 1% = 2 mL. Medication's Wasted: Heparin = 2000 units. Medication's Wasted: Fentanyl = 50 mcg. Total IV fluids: 75 mL. Fluoro: 14:30. Contrast type used: Omnipaque 300 mgI/mL, 500 mL bottle. [id number]. PCI Indication: NSTE. Post-op diagnosis: NSTEMI. Complications: none. Estimated blood loss: 5mL-10mL. Procedure completed. Patient transferred by bed to ICU. Site: Left Femoral artery Sheath Size: 6 Fr Hemostasis Method: Suture Hemostasis Success: Successful Procedure Medications Start: 3:59 PM Stop: 3:59 PM Medication: Versed 1 mg and Fentanyl 25 mcg Amount: 1 Route: I.V. Start: 4:16 PM Stop: 4:16 PM Medication: Versed Amount: 1 mg Route: I.V. Start: 4:18 PM Stop: 4:18 PM Medication: Fentanyl Amount: 25 mcg Route: I.V. Start: 4:38 PM Stop: 4:38 PM Medication: Heparin Amount: 2000 units Route: I.V. Start: 4:43 PM Stop: 4:43 PM Medication: Amiodarone (Cordarone) Amount: 150 mg Route: I.V. bolus I, the attending physician, have reviewed and verified all procedure medications. Yes, all medications given per verbal order History/Risk Factors Hypertension: No Dyslipidemia: No Peripheral Arterial Disease (PAD): No Myocardial Infarction (AR): No Obesity: No Renal Disease: No Prior Interventions PCI: No CABG: No Valve Surgery: No Report Signatures Finalized by:Zeeshan Chow MD on 12/02/2019 7:06:16 PM
--- NOTE | 2019-11-21 15:32 | ECG_ITS ---
Measurements Intervals [place] Rate: 64 P: 82 AL: 135 QRS: 18 QRSD: 83 T: 239 QT: 527 QTc: 545 SINUS RHYTHM POSSIBLE RIGHT ATRIAL ENLARGEMENT [0.25mV P WAVE] INFERIOR MYOCARDIAL INFARCTION , OF INDETERMINATE AGE [40+ ms Q WAVE AND/OR ST/T ABNORMALITY IN II/aVF] MARKED T-WAVE ABNORMALITY, ANTEROLATERAL ISCHEMIA [-0.5+ mV T WAVE IN I/aVL/V3-V6], possible recent anterior wall IN Compared to ECG 10/25/2019 18:46:42 Myocardial infarct finding now present Possible ischemia now present T-wave abnormality still present Electronically Signed On 11-21-2019 17:17:04 CDT by Nik Ashraf M.D. [email or web address]
[2019-11-21 16:19] LABS: CKMB 254.8 ng/mL (0-10.4); CKMB Relative Index 18.6 % (0.0-5.3)
--- NOTE | 2019-11-21 17:20 | P.HP_ITS ---
Providers/Chief Complaint Chief Complaint: CHEST PAIN History of Present Illness Isaak Soriano is a 68 year old male past medical history significant for failure to thrive, Peripheral vascular disease, colostomy, COPD, hypertension, peripheral vascular disease who is [facility] resident was starting having pain in the past 12-hour when it became more consistent he decided to come to emergency room. EKG was suggestive of anterolateral T wave inversion suggestive of ischemia. Initially chest pain relieved therefore we decided to admit the patient however it returned back and troponin was around 900 therefore we took patient to the [facility]. He was found to have proximal long moderate caliber diagonal branch thought to be culprit. It was treated with single drug-eluting stent. Patient has aneurysmal mid LAD which tapers off towards the mid but does not go all the way to the apex. Circumflex was moderate size and caliber large vessel which is dominant without significant stenosis. RCA was nondominant small vessel with diffuse disease. During angiogram patient went into V. fib treated with electrical cardioversion. Review of Systems Const: Denies: fever, chills, body aches, change in appetite, fatigue or malaise ENMT: Denies: throat pain, enlarged tonsils, ear pain, nasal discharge or nasal congestion Card: Reports: chest pain; Denies: edema, shortness of breath on exertion or shortness of breath when lying down Resp: Denies: shortness of breath, productive cough or non-productive cough GI: Reports: nausea; Denies: abdominal pain, vomiting, vomiting blood, coffee grounds in vomit, diarrhea, constipation, bloating, blood in stool or black tarry stool : Denies: flank pain, painful urination, urinary frequency or urinary u rgency Skin/Breast: Denies: rash or itching Medications/Allergies Home Medications Medication Instructions Recorded Confirmed Last Taken Type acetaminophen [Tylenol] 325 mg PO Q6H PRN 11/21/19 11/21/19 Unknown History albuterol sulfate 2 puff INHALATION Q6H PRN 11/21/19 11/21/19 Unknown History aspirin 325 mg PO DAILY 11/21/19 11/21/19 11/21/19 11:00 History clonidine HCl [Catapres] 0.1 mg PO Q8H 11/21/19 11/21/19 11/21/19 11:00 History docusate sodium [Colace] See Rx Instructions .ROUTE .COMPLEX 11/21/19 11/21/19 11/21/19 08:00 History famotidine [Pepcid] 40 mg PO DAILY 11/21/19 11/21/19 11/21/19 11:00 History fluticasone furoate-vilanterol 1 inh INHALATION DAILY 11/21/19 11/21/19 11/21/19 History [Breo Ellipta] furosemide 20 mg PO DAILY 11/21/19 11/21/19 11/21/19 08:00 History magnesium hydroxide [Milk of 30 ml PO PRN 11/21/19 11/21/19 Unknown History Magnesia] metoprolol tartrate 75 mg PO BID 11/21/19 11/21/19 11/21/19 08:00 History polyethylene glycol 3350 [Miralax] 17 g PO DAILY PRN 11/21/19 11/21/19 11/20/19 History sennosides-docusate sodium 1 tab PO BID PRN 11/21/19 11/21/19 Unknown History [Senna-S] Allergies Allergy/AdvReac Type Severity Reaction Status Date / Time No Known Allergies Allergy Verified 11/21/19 14:22 PFSH Acute PFSH: Social History Smoking and tobacco status: current every day smoker Vitals/I&O/Wt Last Vital Signs Temp 98.0 F 11/21/19 13:14 Pulse 68 11/21/19 15:37 Resp 20 H 11/21/19 15:37 BP 149/66 11/21/19 15:37 Pulse Ox 99 11/21/19 15:37 Weight last 48 hrs Weight 92 lb Physical Exam Narrative: EXAM NARRATIVE: GENERAL: Patient is alert, awake and oriented x3. NECK: No jugular vein distension. HEENT: No cyanosis. No icterus. No pallor. HEART: Regular S1 and S2. No murmur, rub or gallop. LUNGS: Decreased breath sound bilaterally. ABDOMEN: Soft, nontender and nondistended. Colostomy bag intact CENTRAL NERVOUS SYSTEM: Grossly nonfocal. EXTREMITIES: Lower extremities without edema bilaterally. Data : 11/21/19 14:05 11/22/19 09:47 A&P Assessment and plan (1) Essential hypertension: Stable. Status: Acute (2) Non-ST elevation [place] (NSTEMI): Status post drug-eluting stent to diagonal branch. Patient was loaded with Plavix continue Plavix p.o. once a day. Over next 24 hours we will add home medicine and beta-chidi. Status: Acute Attestations Medical Necessity Statement*: Patient require continuation hospitalization for above defined care. Coding Level of Care Code New Pt Acute Candle Wicker for Micha Adam Patient Type New History Detailed Exam Detailed Medical Decision Making High Complexity Diagnoses Essential hypertension I10 Non-ST elevation [place] (NSTEMI) I21.4
[2019-11-21] MEDS: cloNIDine 0.1 mg Tablet PO (18:31)
[2019-11-21 20:06] LABS: Partial Thromboplastin Time 32.2 SECONDS (23.9-36.7)
[2019-11-21] MEDS: fentaNYL 50 mcg/mL INJ 2mL IVP (21:32)
--- NOTE | 2019-11-21 22:30 | PC.NURSE ---
Femoral Sheath Removal Left femoral sheath removed at 2140. 50 mcg of Fentanyl given IVP. Vital signs taken every 5 minutes. Direct pressure applied for 20. No bleeding, no hematoma noted. Pressure dressing applied. Patient tolerated well. Patient educated on post-angiogram activity restrictions and reportable signs and symptoms of bleeding. Will continue to monitor site.
[2019-11-22] VITALS (19 sets, daily range): BP systolic 101–167; BP diastolic 57–77; PULSE 62–82; RESP 14–23; TEMP 35.9–36.9; O2SAT 96–100
--- NOTE | 2019-11-22 00:36 | PC.NURSE ---
Dr. Chow notified of patient having a 20 second run of Vtach. Systikd Blood pressure in the 180's. Ordered to give 2 gm of Magnesium Sulfate IV, and a 150 mg Amiodarone Bolus. Ordered to start on Amiodarone gtt at 1 mg/min for 6 hours and titrate to 0.5 mg/min for 18 hours. Will continue to monitor.
[2019-11-22] MEDS: magnesium sulfate premix 2 GM/50 ML PIGGYBACK IV (00:42)
[2019-11-22] MEDS: cloNIDine 0.1 mg Tablet PO ×3 (02:23→17:35)
--- NOTE | 2019-11-22 06:20 | W.ED.CHESTPA ---
HPI - Chest Pain General: Chief Complaint: Chest Pain Stated Complaint: CHEST PAIN Time Seen by Provider: 11/21/19 13:14 History of Present Illness: HPI narrative: 68-year-old male presents emergency room with complaint of chest discomfort mild as well as having significant shortness of breath even at rest. 1 month ago he here at the hospital and was transferred to an outside facility with diverticulitis and abscess resulted in obstructed ureter ultimately he ended up getting a colostomy. He has no previously known history of coronary disease. He did get nauseous with this initially but initially did not have any shortness of breath he is still having some chest discomfort rates his room to 3-4. This is been going on in a waxing and waning fashion since yesterday. He is currently at the care home. MD complaint: chest discomfort Onset (ago): hour(s) Timing of current episode: episodic Onset: during rest Pain location: left chest Severity: moderate Quality: heaviness and crushing Relieving factors: nitroglycerin Exacerbating factors: exertion and stress Context: recent surgery (Bowel resection secondary to diverticular abscess with colostomy.) Associated symptoms: Reports dyspnea; Deny abdominal pain, fever(s), nausea or vomiting Treatment prior to arrival: aspirin Review of Systems Const: Denies: fever, chills, body aches, change in appetite, fatigue or malaise ENMT: Denies: throat pain, ear pain, nasal discharge or nasal congestion Card: Reports: chest pain, shortness of breath on exertion and shortness of breath when lying down; Denies: edema Resp: Reports: shortness of breath; Denies: productive cough or non-productive cough GI: Denies: abdominal pain, nausea, vomiting, vomiting blood, coffee grounds in vomit, diarrhea, constipation, bloating, blood in stool or black tarry stool : Denies: flank pain, painful urination, urinary frequency or urinary urgency Skin/Breast: Denies: rash or itching PFSH ED PFSH: Social History Smoking and tobacco status: current every day smoker Physical Exam Const: COMMON NORMALS: no apparent distress GENERAL APPEARANCE: cooperative and comfortable ORIENTATION/CONSCIOUSNESS: Yes awake, Yes oriented to person, Yes oriented to place and Yes oriented to time HENMT: COMMON NORMALS: normocephalic, head/scalp atraumatic, hearing grossly normal bilaterally, external ears normal, EAC's normal, TM's normal bilaterally, nasal mucous membranes and turbinates normal, moist oral mucous membranes and oropharynx normal HEAD & SCALP: normocephalic and atraumatic NOSE: nasal mucous membranes and turbinates normal EXTERNAL EAR: Yes external ears normal EXTERNAL AUDITORY CANAL: EAC's normal TYMPANIC MEMBRANE: TM's normal bilaterally Eye: COMMON NORMALS: PERRL, EOMs intact bilaterally, conjunctivae normal and no scleral icterus CONJUNCTIVA: Yes conjunctivae normal PUPIL: Yes PERRL Neck/C-Spine: COMMON NORMALS: full ROM, no lymphadenopathy, supple and no JVD Lymph: LYMPHATIC: no lymphadenopathy noted and no lymphedema noted Resp: COMMON NORMALS: normal respiratory effort, no retractions, no use of accessory muscles and clear to auscultation bilaterally AUSCULTATION: clear to auscultation bilaterally Cardio: COMMON NORMALS: no JVD, regular rate, regular rhythm and no murmurs RATE: regular rate RHYTHM: regular rhythm GI: COMMON NORMALS: soft to palpation and no hepatosplenomegaly AUSCULTATION: Yes normoactive bowel sounds PALPATION: Yes soft, No tender, No guarding and Yes no hepatosplenomegaly OTHER: Colostomy in the left lower abdomen just to the left of the midline otherwise abdominal exam is normal. Extremity: COMMON NORMALS: normal to inspection, normal capillary refill, no clubbing, cyanosis or edema, no calf tenderness and no pedal edema Neuro: SENSORIUM/ORIENTATION: Yes oriented to person, Yes oriented to place and Yes oriented to time Skin: COMMON NORMALS: no rashes or lesions noted GENERAL SKIN EXAM: no rashes or lesions noted Course Vital Signs: Vital signs: Vital Signs Temperature 98.6 F 11/23/19 11:21 Pulse Rate 65 11/23/19 11:21 Respiratory Rate 17 11/23/19 11:21 Blood Pressure 108/62 11/23/19 11:28 Pulse Oximetry 98 11/23/19 11:21 MDM - Chest Pain MDM Narrative: Medical decision making narrative: EKG shows acute ST elevation in V23 and 4 inverted T waves across all the precordial leads in 123 and aVF. Reviewed an old EKG this does represent an acute change from an EKG done in October 242019. STEMI alert was called Dr. Jones came to the department and seen the patient interviewed the patient himself and did an exam. At this point he feels since it is been going on for over 24 hours he wanted to observe and wait on the first troponin. Recommends to admit for further rule out with hospitalist. 1502: Space resulted troponin initially greater than 900 he still having pain is actually increasing at this point is given another dose of morphine EKG repeated still shows ST elevation diffuse ST inversion called discussed Dr. Jones again they will take patient directly to the [facility]. Lab Data: Labs: Lab Results 11/21/19 11/21/19 11/21/19 Range/Units 14:05 14:05 14:05 WBC 11.2 H (4.0-10.0) 10^3/ uL RBC 4.12 (4.1-5.3) 10^6/u L Hgb 12.4 (11.7-16.6) g/dL Hct 37.4 L (42.0-52.0) % MCV 90.8 (80-94) fL MCH 30.1 (28.0-34.0) pg MCHC 33.2 (30.0-36.0) g/dL RDW 19.7 H (12.1-15.1) % Plt Count 268 (130-400) 10^3/c mm MPV 10.9 H (7.4-10.4) fL Neut % (Auto) 73.4 % Lymph % (Auto) 15.6 % [place] % (Auto) 9.3 % Eos % (Auto) 1.0 % Baso % (Auto) 0.2 % Neut # (Auto) 8.2 H (1.8-7.7) 10^3/u L Lymph # (Auto) 1.7 (0.8-4.8) 10^3/u L [place] # (Auto) 1.0 H (0.2-0.9) 10^3/u L Eos # (Auto) 0.1 (0.0-0.8) 10^3/u L Baso # (Auto) 0.0 (0.0-0.1) 10^3/u L Nucleated RBC % (a uto) 0 % Nucleated RBCs # 0.0 /100WBC PT 14.80 H (10.5-13.3) SECO NDS INR 1.13 (0.8-1.2) APTT 58.0 H (23.9-36.7) SECO NDS D-Dimer 3.35 H (0-0.59) ug/mIFE U Sodium 128 L (136-145) mmol/L Potassium 4.1 (3.5-5.1) mmol/L Chloride 94 L (98-107) mmol/L Carbon Dioxide 20 L (22-29) mmol/L Anion Gap 18.1 (5-19) BUN 14 (8-23) mg/dL Creatinine 0.6 L (0.7-1.2) mg/dL GFR Calculation 134.8 H (90-130) mL/min Glucose 127 H (65-115) mg/dL Calculated Osmolal ity 264 L (285-295) mOsm/k g Calcium 8.0 L (8.5-10.5) mg/dL Total Bilirubin 0.7 (0.15-1.2) mg/dL AST 153 H (0-40) U/L ALT 36 (0-41) U/L Alkaline Phosphata se 156 H (40-130) IU/L Creatine Kinase 1369 H* (39-308) U/L CK-MB (CK-2) 254.8 H (0-10.4) ng/mL CK-MB (CK-2) Rel I ndex 18.6 H (0.0-5.3) % Troponin T Baselin e (0-15) ng/mL NT-Pro-B Natriuret Pep 91845 H (0-125) pg/mL Total Protein 6.9 (6.6-8.7) g/dL Albumin 3.1 L (3.5-5.2) g/dL Globulin 3.8 (1.3-4.6) g/dL Lipase 54 (13-60) U/L 11/21/19 Range/Units 14:05 WBC (4.0-10.0) 10^3/ uL RBC (4.1-5.3) 10^6/u L Hgb (11.7-16.6) g/dL Hct (42.0-52.0) % MCV (80-94) fL MCH (28.0-34.0) pg MCHC (30.0-36.0) g/dL RDW (12.1-15.1) % Plt Count (130-400) 10^3/c mm MPV (7.4-10.4) fL Neut % (Auto) % Lymph % (Auto) % [place] % (Auto) % Eos % (Auto) % Baso % (Auto) % Neut # (Auto) (1.8-7.7) 10^3/u L Lymph # (Auto) (0.8-4.8) 10^3/u L [place] # (Auto) (0.2-0.9) 10^3/u L Eos # (Auto) (0.0-0.8) 10^3/u L Baso # (Auto) (0.0-0.1) 10^3/u L Nucleated RBC % (a uto) % Nucleated RBCs # /100WBC PT (10.5-13.3) SECO NDS INR (0.8-1.2) APTT (23.9-36.7) SECO NDS D-Dimer (0-0.59) ug/mIFE U Sodium (136-145) mmol/L Potassium (3.5-5.1) mmol/L Chloride (98-107) mmol/L Carbon Dioxide (22-29) mmol/L Anion Gap (5-19) BUN (8-23) mg/dL Creatinine (0.7-1.2) mg/dL GFR Calculation (90-130) mL/min Glucose (65-115) mg/dL Calculated Osmolal ity (285-295) mOsm/k g Calcium (8.5-10.5) mg/dL Total Bilirubin (0.15-1.2) mg/dL AST (0-40) U/L ALT (0-41) U/L Alkaline Phosphata se (40-130) IU/L Creatine Kinase (39-308) U/L CK-MB (CK-2) (0-10.4) ng/mL CK-MB (CK-2) Rel I ndex (0.0-5.3) % Troponin T Baselin e 920 H* (0-15) ng/mL NT-Pro-B Natriuret Pep (0-125) pg/mL Total Protein (6.6-8.7) g/dL Albumin (3.5-5.2) g/dL Globulin (1.3-4.6) g/dL Lipase (13-60) U/L Discharge Plan Discharge Patient Disposition: Admitted As Inpatient Admit Provider: Zeeshan Chow Clinical Impression: ST elevation myocardial infarction (STEMI) Condition: Stable Discharge Orders: Discharge Order (Routine); Ordered 11/23/19 Ordered By: Zeeshan Chow Referrals: Zeeshan Chow MD [Physician] - 11/30/19 9:00 am (APPOINTMENT WITH [facility]) Discharge Diet: Cardiac and Low Salt Discharge Activity: Increase activity as tolerated Patient Instructions: Metoprolol (By mouth), Amiodarone (By mouth), Nitroglycerin, Rapid Release (By mouth), Simvastatin (By mouth), Clopidogrel (By mouth), Pantoprazole (By mouth), Left Heart Catheterization (DC), Right Heart Catheterization (DC), Coronary Angioplasty (DC) Additional Instructions: Follow-up with Dr. Chow in 7 days Discharge Date/Time: 11/21/19 15:40 Coding Level of Care Code ED Tax Accountant for Micha Adam
[2019-11-22] MEDS: amiodarone 200 mg Tablet PO (10:00)
[2019-11-22] MEDS: aspirin 325 mg Tablet PO (10:00)
[2019-11-22] MEDS: famotidine 20 mg Tablet 40 MG PO (10:00)
[2019-11-22] MEDS: clopidogrel 75 mg Tablet PO (10:01)
[2019-11-22] MEDS: FUROsemide 20 mg Tablet PO (10:01)
[2019-11-22 10:24] LABS: Alanine Aminotransferase 50 U/L (0-41); Albumin Level 3.3 g/dL (3.5-5.2); Alkaline Phosphatase 159 IU/L (40-130); Anion Gap 17.3 (5-19); Aspartate Amino Transferase 217 U/L (0-40); Blood Urea Nitrogen 12 mg/dL (8-23); Carbon Dioxide 21 mmol/L (22-29); Chloride 95 mmol/L (98-107); Creatinine Clr Calc Pharmacy 53.6115; Globulin 4.3 g/dL (1.3-4.6); Glomerular Filtration Rate 112.8 mL/min (90-130); Glucose 180 mg/dL (65-115); Magnesium 2.1 mg/dL (1.7-2.3); Osmolality Calculated 269 mOsm/kg (285-295); Potassium 4.3 mmol/L (3.5-5.1); Sodium 129 mmol/L (136-145); Total Bilirubin 1.1 mg/dL (0.15-1.2); Total Protein 7.6 g/dL (6.6-8.7)
--- NOTE | 2019-11-22 12:02 | P.PN_ITS ---
Subjective Subjective: Interval history: Patient had short runs of VT nonsustained last night requiring IV amiodarone. He denied chest pain out of your shortness of breath. He is laying comfortably in the bed. Vitals/I&O/Wt Last Vital Signs Temp 97.9 F 11/22/19 10:00 Pulse 71 11/22/19 10:00 Resp 18 11/22/19 10:00 BP 133/73 11/22/19 10:00 Pulse Ox 98 11/22/19 10:00 11/21/19 11/22/19 11/22/19 22:59 06:59 14:59 Intake Total 460 / 460 Output Total 100 / 100 250 / 350 150 / 150 Balance -100 / -100 -250 / -350 310 / 310 Weight last 48 hrs Weight 92 lb Physical Exam Narrative: EXAM NARRATIVE: GENERAL: Patient is alert, awake and oriented x3. NECK: No jugular vein distension. HEENT: No cyanosis. No icterus. No pallor. HEART: Regular S1 and S2. No murmur, rub or gallop. LUNGS: Decreased breath sound bilaterally. ABDOMEN: Soft, nontender and nondistended. Colostomy bag intact CENTRAL NERVOUS SYSTEM: Grossly nonfocal. EXTREMITIES: Lower extremities without edema bilaterally. Data : 11/21/19 14:05 11/22/19 09:47 A&P Assessment and plan (1) Essential hypertension: Stable. Stable. Status: Acute (2) Non-ST elevation [place] (NSTEMI): Status post drug-eluting stent to diagonal branch. Patient denies any yong st pain. Continue aspirin statin beta-chidi and Plavix. Status: Acute (3) Ventricular fibrillation: Patient had short runs of VT, however yesterday he had sustained VF aborted with electrical cardioversion. In the Associate School Psychologist last night he was started on IV amiodarone since he was having short runs, magnesium was also given. Today magnesium is 2.1. We will switch him to oral p.o. amiodarone and continue beta-chidi which will be optimized Status: Acute Attestations Medical Necessity Statement*: Requires continuation of hospitalization for above defined care Coding Level of Care Code Established Pt Acute Bedspread Seamer for Micha Fwd Patient Type Established History Expanded Problem Focused Exam Expanded Problem Focused Medical Decision Making Moderate Complexity Diagnoses Essential hypertension I10 Non-ST elevation [place] (NSTEMI) I21.4 Ventricular fibrillation I49.01
--- NOTE | 2019-11-22 12:18 | USCV_ITS ---
Isaak Soriano Age: 68 Gender: M : 1950 Exam Date: 11/22/2019 15:41 Ordering Phys: Zeeshan Chow MD ([email or web address]) Technologist: MINH STEVEN Exam Location: [facility] Indication: NSTEMI, CHF, ARRHYTHMIA BP: 133 / 73 HR: 79 Rhythm: Sinus Technical Quality: Adequate MEASUREMENTS (Male / Female) Normal Values 2D ECHO LV Diastolic Diameter PLAX 3.8 cm 4.2 - 5.9 / 3.9 - 5.3 cm LV Systolic Diameter PLAX 2.4 cm IVS Diastolic Thickness 0.9 cm 0.6 - 1.0 / 0.6 - 0.9 cm IVS Systolic Thickness 1.3 cm LVPW Diastolic Thickness 1.0 cm 0.6 - 1.0 / 0.6 - 0.9 cm LVPW Systolic Thickness 1.4 cm LVOT Diameter 2.0 cm LV Ejection Fraction 2D Teich 68.3 % LV Ejection Fraction MOD 2C 57.3 % LV Ejection Fraction 2C AL 56.7 % LA Diameter 3.1 cm LA Width 3.7 cm LA Height 4.4 cm RA Width 4.2 cm RA Height 4.1 cm Aorta at Sinotubular Diameter 2.7 cm M-MODE LV Diastolic Diameter MM 4.4 cm 4.2 - 5.9 / 3.9 - 5.3 cm LV Systolic Diameter MM 3.2 cm LV Ejection Fraction MM Teich 51.9 % IVS Diastolic Thickness MM 1.0 cm 0.6 - 1.0 / 0.6 - 0.9 cm IVS Systolic Thickness MM 1.1 cm LVPW Diastolic Thickness MM 1.0 cm 0.6 - 1.0 / 0.6 - 0.9 cm LVPW Systolic Thickness MM 1.3 cm Aortic Annulus Diameter 2.9 cm LA Ao Ratio MM 1.1 MV E Point Septal Separation 1.7 cm DOPPLER AV Peak Velocity 122.0 cm/s LVOT Peak Velocity 81.0 cm/s AV Area Cont Eq vti 2.3 cm squared AV Area Cont Eq pk 2.1 cm squared MV Peak Velocity 146.0 cm/s MV Area PHT 3.9 cm squared Mitral E to A Ratio 1.5 MV E' Velocity 6.0 cm/s Mitral E to MV E' Ratio 23.4 Mitral E to LV E' Lateral Ratio 24.2 Mitral E to LV E' Septal Ratio 22.6 TR Peak Velocity 287.8 cm/s TR Peak Gradient 33.1 mmHg TR Mean Velocity 227.8 cm/s TR Mean Gradient 22.4 mmHg TR Velocity Time Integral 81.6 cm TV Peak E Velocity 59.0 cm/s Right Atrial Pressure 3.0 mmHg Pulmonary Artery Systolic Pressu 36.1 mmHg PV Peak Velocity 87.0 cm/s RV Acceleration Time 0.1 s RV Ejection Time 0.4 s RV AcT/ET 0.3 FINDINGS Left Ventricle Normal left ventricular cavity size. Moderately decreased left ventricular systolic function. Left ventricular ejection fraction is estimated at 45 %. Mid to distal anterior and apical hypokinesis suggestive of ischemia in LAD territiry.Grade II/IV diastolic dysfunction, moderately elevated filling pressures. Right Ventricle The right ventricle is normal in size and function. Right Atrium The right atrium is normal in size. Left Atrium The left atrium is normal in size. Mitral Valve Moderately thickened mitral valve. Severe mitral annular calcification. No mitral valve stenosis. Mild mitral valve regurgitation. Aortic Valve Severe aortic valve calcification. Mild aortic valve stenosis, mean gradient 2.8 mmHg, CHERYLE 2.3 cm squared. Mild aortic valve regurgitation. Tricuspid Valve Structurally normal tricuspid valve without significant stenosis or regurgitation. Pulmonary artery systolic pressure is normal. Pulmonic Valve Structurally normal pulmonic valve without significant stenosis. There is no pulmonic regurgitation. Pericardium Normal pericardium without effusion. Aorta Normal ascending aorta dimension. CONCLUSIONS 1-Normal left ventricular cavity size. Moderately decreased left ventricular systolic function. Left ventricular ejection fraction is estimated at 45 %. Mid to distal anterior and apical hypokinesis suggestive of ischemia in LAD territiry.Grade II/IV diastolic dysfunction, moderately elevated filling pressures. 2-Moderately thickened mitral valve. Severe mitral annular calcification. No mitral valve stenosis. Mild mitral valve regurgitation. 7-Severe aortic valve calcification. Mild aortic valve stenosis, mean gradient 2.8 mmHg, CHERYLE 2.3 cm squared. Mild aortic valve regurgitation. 8-Structurally normal tricuspid valve without significant stenosis or regurgitation. Pulmonary artery systolic pressure is normal. 9-Right atrial pressure is around 10 mm of mercury. 10-There are no prior echocardiogram studies to compare. Zeeshan Chow MD (Electronically Signed) Final Date: 22 Nov 2019 17:43 S
--- NOTE | 2019-11-22 17:25 | PC.RESP ---
Smoking Cessation and Pulmonary Rehab information with a schedule of classes given to patient
[2019-11-22] MEDS: metoprolol succinate ER (24 HR) 25 mg Tablet PO (17:36)
[2019-11-22] MEDS: FUROsemide 10 mg/mL SDV 4mL 40 MG IVP (19:17)
--- NOTE | 2019-11-22 22:40 | PC.NURSE ---
discussed pt c dr. annalisa allen to transfer to med surg c tele . manfred pearl.
--- NOTE | 2019-11-22 23:19 | PC.NURSE ---
Patient transferred to [facility] Rm. [id number]. Report called to LUIS ANTONIO Michael
[2019-11-23] VITALS (9 sets, daily range): BP systolic 95–131; BP diastolic 54–74; PULSE 61–75; RESP 15–20; TEMP 36.3–37; O2SAT 95–98
[2019-11-23] MEDS: cloNIDine 0.1 mg Tablet PO ×2 (02:06→11:28)
--- NOTE | 2019-11-23 07:34 | PM.PN ---
Subjective Subjective: Interval history: Feeling much better no more ventricular tachycardia. Patient denies any complaint. Medications: Reviewed: Yes Vitals/I&O/Wt Last Vital Signs Temp 97.8 F 11/23/19 07:29 Pulse 61 11/23/19 07:29 Resp 17 11/23/19 07:29 BP 112/63 11/23/19 07:29 Pulse Ox 98 11/23/19 07:29 11/22/19 11/23/19 11/23/19 22:59 06:59 14:59 Intake Total 420 / 1195.392 Output Total 800 / 1100 350 / 1450 Balance -380 / 95.392 -350 / -254.608 Weight last 48 hrs Weight 92 lb Physical Exam Narrative: EXAM NARRATIVE: GENERAL: Patient is alert, awake and oriented x3. NECK: No jugular vein distension. HEENT: No cyanosis. No icterus. No pallor. HEART: Regular S1 and S2. No murmur, rub or gallop. LUNGS: Decreased breath sound bilaterally. ABDOMEN: Soft, nontender and nondistended. Colostomy bag intact CENTRAL NERVOUS SYSTEM: Grossly nonfocal. EXTREMITIES: Lower extremities without edema bilaterally. Data : 11/21/19 14:05 11/22/19 09:47 A&P Assessment and plan (1) Essential hypertension: Stable. Status: Acute (2) Non-ST elevation [place] (NSTEMI): Status post drug-eluting stent doing fine from a cardiac perspective continue medicine Status: Acute (3) Ventricular fibrillation: No more ventricle tachycardia or fibrillation. Continue amiodarone 200 mg p.o. daily. Status: Acute (4) CHF (congestive heart failure): Well compensated after IV Lasix. We will switch him to p.o. Lasix. Patient has moderately depressed LV. Status: Acute Attestations Medical Necessity Statement*: Patient is stable doing fine from a coronary disease and heart failure perspective. We will discharge him today. Coding Level of Care Code Acute Trouble Dispatcher for Micha Adam Diagnoses Essential hypertension I10 Non-ST elevation [place] (NSTEMI) I21.4 Ventricular fibrillation I49.01 CHF (congestive heart failure) I50.9
--- NOTE | 2019-11-23 07:48 | P.DS_ITS ---
Discharge Providers Date of Admission: 11/21/19 17:40 Date of Discharge: November 23, 2019 Attending Provider at Admission: Zeeshan Chow MD Attending Provider at Discharge: Zeeshan Chow MD Diagnoses at Discharge Discharge Diagnosis (1) Essential hypertension: Status: Acute (2) Non-ST elevation VT (NSTEMI): Status: Acute (3) Ventricular fibrillation: Status: Acute (4) CHF (congestive heart failure): Status: Acute Reason for Visit Reason for Visit: Reason For Visit: CHEST PAIN Hospital Course Hospital Course: 68-year-old male past medical history significant for hyper tension hyperlipidemia status post colostomy, failure to thrive underwent emergent coronary angiogram for unstable non-ST elevation VT. He was found to have proximal diagonal significant stenosis treated with drug-eluting stent. Postop case was complicated with ventricle fibrillation treated with electrical cardioversion and then p.o. amiodarone. Echocardiogram was performed which showed moderate LV dysfunction. Patient was treated with diuretics. Medicine were maximized and optimized. Today he is feeling much better. He is being discharged home. He is going to follow-up with me in the clinic in 7 days. Advised to continue Plavix and do not stop it for at least 1 year. Discharge Summary: As above Physical Exam Narrative: EXAM NARRATIVE: GENERAL: Patient is alert, awake and oriented x3. NECK: No jugular vein distension. HEENT: No cyanosis. No icterus. No pallor. HEART: Regular S1 and S2. No murmur, rub or gallop. LUNGS: Decreased breath sound bilaterally. ABDOMEN: Soft, nontender and nondistended. Colostomy bag intact CENTRAL NERVOUS SYSTEM: Grossly nonfocal. EXTREMITIES: Lower extremities without edema bilaterally. 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 Stat Exams 11/21/19 15:26 Taken Labs from last 24 hours 11/22/19 09:47 Sodium 129 L Potassium 4.3 Chloride 95 L Carbon Dioxide 21 L Anion Gap 17.3 BUN 12 Creatinine 0.7 GFR Calculation 112.8 Glucose 180 H Calculated Osmolal ity 269 L Calcium 9.0 Magnesium 2.1 Total Bilirubin 1.1 AST 217 H ALT 50 H Alkaline Phosphata se 159 H Total Protein 7.6 Albumin 3.3 L Globulin 4.3 Vitals: Last Vital Signs Temp 97.8 F 11/23/19 07:29 Pulse 61 11/23/19 07:29 Resp 17 11/23/19 07:29 BP 112/63 11/23/19 07:29 Pulse Ox 98 11/23/19 07:29 Discharge Plan Discharge Condition: Stable Prescriptions: New Pacerone 200 mg Tablet 200 mg PO DAILY Qty: 30 RF: 4 clopidogrel 75 mg Tablet 75 mg PO DAILY Qty: 90 RF: 4 Nitrostat 0.4 mg Tablet, Sublingual 0.4 mg sublingual Q5M PRN (Reason: Chest Pain) Qty: 30 RF: 4 metoprolol succinate 25 mg Tablet Extended Release 24 Hr 25 mg PO 1800 Qty: 30 RF: 4 Protonix 40 mg tablet,delayed release (DR/EC) 40 mg PO DAILY Qty: 30 RF: 4 simvastatin [Zocor] 20 mg tablet 20 mg PO DAILY Qty: 30 RF: 4 Continued Catapres 0.1 mg Tablet 0.1 mg PO Q8H RF: 0 Tylenol 325 mg Tablet 325 mg PO Q6H PRN (Reason: unknown) RF: 0 Miralax 17 gram Powder In Packet 17 g PO DAILY PRN (Reason: Constipation) RF: 0 aspirin 325 mg Tablet 325 mg PO DAILY RF: 0 Pepcid 40 mg Tablet 40 mg PO DAILY RF: 0 Senna-S 8.6-50 mg Tablet 1 tab PO BID PRN (Reason: Constipation) RF: 0 Milk of Magnesia 400 mg/5 mL Suspension 30 ml PO PRN RF: 0 Colace 100 mg Capsule See Rx Instructions .ROUTE .COMPLEX RF: 0 furosemide 20 mg Tablet 20 mg PO DAILY RF: 0 albuterol sulfate 90 mcg/actuation Hfa Aerosol Inhaler 2 puff INHALATION Q6H PRN (Reason: Shortness Of Breath) RF: 0 Breo Ellipta 100-25 mcg/dose Blister With Device 1 inh INHALATION DAILY RF: 0 Discontinued metoprolol tartrate 75 mg Tablet 75 mg PO BID RF: 0 Discharge Orders: Discharge Order (Routine); Ordered 11/23/19 Ordered By: Zeeshan Chow Discharge Diet: Cardiac and Low Salt Discharge Activity: Increase activity as tolerated Patient Instructions: Left Heart Catheterization (DC), Coronary Angioplasty (DC) Activity Restrictions/Additional Instructions: Follow-up with Dr. Chow in 7 days Discharge Attestations Time Spent in Discharge Care*: less than 30 min Specific Discharge Activities: Specific discharge activities: educating patient Time Spent in Smoking Cessation: Time spent discussing smoking cessation with patient: 3 to 10 minutes Quality Metrics Clinical Quality Measures During this hospital stay, did patient experience: AMI Clinical Trial Participant: No Contraindication to aspirin (AMI): Aspirin given Contraindication to statin: Statin prescribed Coding Level of Care Code Acute Able Seaman for Chg Fwd Diagnoses Essential hypertension I10 Non-ST elevation VT (NSTEMI) I21.4 Ventricular fibrillation I49.01 CHF (congestive heart failure) I50.9
[2019-11-23] MEDS: famotidine 20 mg Tablet 40 MG PO (08:44)
[2019-11-23] MEDS: aspirin 325 mg Tablet PO (08:44)
[2019-11-23] MEDS: FUROsemide 20 mg Tablet PO (08:44)
[2019-11-23] MEDS: clopidogrel 75 mg Tablet PO (08:44)
[2019-11-23] MEDS: amiodarone 200 mg Tablet PO (08:45)
--- NOTE | 2019-11-23 10:05 | PC.CHAP ---
Pastoral Care Encounter/Spiritual Assessment Type of Contact [] Declined emissions technician visit [] Patient/Family/Request visit [] Outpatient visit [] Follow-up visit [] Physician referral [] Code/Alert [x] Routine visit [] Staff referral [] Actively dying [] Patient sleeping [] Family support [] [] Out of room [] Palliative care [] [] Receiving care in room [] Pre-surgical visit [] Trauma [] Long length of stay [] ICU visit [] Other: Relational/Emotional Strength [] Patient feels connected with others/family/visitors/staff [] Distress [] Loneliness/isolation [] Abandonment Spirituality of Patient [] Person of Carlie [] Attends [employer] of their Carlie [] Believes in Prayer [] Reads Bible or Synagogue materials [] There are Spiritual issues to be addressed [place] [employer] Interventions [] Prayer [] Active listening [] Non-anxious presence [] Spiritual/emotional support [] Crisis/trauma care [] Spiritual counseling [] Bereavement support [] Provided bereavement packet [] Provided Bible/devotional materials [] Provided toy/stuffed animal, coloring book to patient or family member [] Provided Communion [] Anointing/[place] [] Salvation [x] Completed spiritual assessment [] Other: Impact on Illness or Injury [] Angry [] Fearful [] Anxious [] Often cries [] Exhaustion [] Unable to work [] Unable to attend baptist [] Unable to walk/stand [] Unable to read [] Unable to drive [] Unable to eat/drink [] Unable to sleep [] Unable to be with family [] Patient intubated [] Other: Summary Patient requested additional blanket. Patient hasn't slept well. Time spent with patient
--- NOTE | 2019-11-23 10:33 | PC.NURSE ---
Report called to OPHELIA Camarillo at [facility] [place]. Nurse verbalized understanding of discharge and did not have any further questions. nutrition services aide has been contacted to set up transportation.
== END 2019-11-23 16:55 | disposition skilled nursing facility (03) | DRG 247 ==
LOC: ER 15:16 → ICU 17:41 → MEDSURG 11-22 23:01
PROVIDERS: Admitting Provider Internal Medicine Cardiovascular Disease; Emergency Provider Family Medicine; Visit Provider Internal Medicine Cardiovascular Disease
PROC: 5A2204Z Restoration of Cardiac Rhythm, Single (ICD-10-PCS; principal; 2019-11-21 03:30)
PROC: 5A2204Z Restoration of Cardiac Rhythm, Single (ICD-10-PCS; 2019-11-21 03:30)
DX: I21.4 Non-ST elevation (NSTEMI) myocardial infarction (principal); E78.5 Hyperlipidemia, unspecified; Z93.3 Colostomy status; I48.91 Unspecified atrial fibrillation; Z79.82 Long term (current) use of aspirin; I50.9 Heart failure, unspecified; I11.0 Hypertensive heart disease with heart failure; J44.9 Chronic obstructive pulmonary disease, unspecified; I73.9 Peripheral vascular disease, unspecified; F17.210 Nicotine dependence, cigarettes, uncomplicated
CPT/HCPCS: 12345; 36415; 71045; 80053; 82550; 82553; 83690; 83735; 83880; 84484; 85025; 85347; 85378; 85610; 85730; 93005; 93306; 96375; 99283; C1725; C1769; C1874; C1887; C1894; C9600; J0282; J1644; J1940; J2001; J2250; J2270; J3010; J3475; J3490; J7030; J7040; J7060; Q9967

== ENCOUNTER → 2019-11-30 09:59 | Outpatient (BNVA) | payer MEDICAID, SELFPAY | PROVIDERS: Visit Provider Nurse Practitioner Family | DX: I25.110 Atherosclerotic heart disease of native coronary artery with unstable angina pectoris (principal) | CPT/HCPCS: 80048 ==

== ENCOUNTER 2020-03-06 15:06 | Outpatient (CLI) | payer MEDICAID, SELFPAY ==
--- NOTE | 2020-03-06 15:00 | USCV_ITS ---
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
== END 2020-03-06 15:07 | disposition home or self-care (01) ==
LOC: RAD 15:08
PROVIDERS: PCP Nurse Practitioner Family; Visit Provider Internal Medicine Cardiovascular Disease
DX: I70.213 Atherosclerosis of native arteries of extremities with intermittent claudication, bilateral legs (principal)
CPT/HCPCS: 93922

== ENCOUNTER 2021-08-06 12:24 | Emergency (ER) | payer MEDICAID, SELFPAY ==
[2021-08-06 12:39] VITALS: BP 107/65; PULSE 105; RESP 22; TEMP 38.5; O2SAT 88
--- NOTE | 2021-08-06 12:47 | XR_ITS ---
WS: [id number] Exam: XR chest 1V portable [id number] Date/Time of Exam: 08/06/2021 12:50 PM Reason For Exam: sob Comparison 11/21/2019. The lungs are fully expanded and clear. Normal cardiomediastinal structures and regional bony element s. Mild chronic interstitial changes. Slight levoscoliosis of the dorsal spine. XR/XR chest 1V portable [id number] IMPRESSION: 1. No acute cardiopulmonary finding. 2. Mild chronic interstitial changes.
--- NOTE | 2021-08-06 13:07 | CT_ITS ---
WS: [id number] CT HEAD NONCONTRAST HISTORY: dizzy/vertigo started this am TECHNIQUE: Contiguous axial imaging performed through the brain in 2.5 mm imaging. Bone and soft tiss ue windows. Sagittal and coronal reformats reviewed. All CT scans at [facility] use at least one of these dose optimization techniques: automated exposure control; mA and/or kV adjustment per pa tient size (includes targeted exams where dose is matched to clinical indication); or iterative recon struction. DLP: 1100.91 mGy.cm COMPARISON: None available. No acute intracranial hemorrhage, midline shift or mass effect. Moderate atrophy with extensive chronic white matter disease and multiple remote lacunar infarcts. La cunar infarct in the RIGHT thalamus and smaller infarcts in the caudate head and external capsule. Ventricles: Mild ventriculomegaly on the basis of atrophy. Paranasal sinuses: As visualized are clear. Mastoid air cells: Well pneumatized. Calvarium and scalp: Skull is intact with no soft tissue edema or swelling. There is a mildly expansile bone lesion involving the RIGHT maxilla measuring 11 x 19 mm. There is stephanie ny expansion. This is not an acute lesion and does slightly across the midline. Odontogenic keratocys t within the differential. CT/CT head wo con* [id number] IMPRESSION: 1. No acute intracranial hemorrhage or edema. 2. Atrophy and extensive chronic white matter disease. Numerous chronic lacuna r infarcts predominantly on the RIGHT.
[2021-08-06 13:08] VITALS: O2SAT 97
--- NOTE | 2021-08-06 13:08 | ECG_ITS ---
[facility] Test Date: 2021-08-06 Pat Name: Isaak Soriano Department: Room: Gender: Male Business Process Manager: : 1950 Requested By: Moses Perez Order Number: [id number] Reading MD: Leanna Garcia M.D. Measurements Intervals Hunter Rate: 79 P: 78 LA: 166 QRS: 11 QRSD: 94 T: 81 QT: 414 QTc: 477 Interpretive Statements SINUS RHYTHM INFERIOR MYOCARDIAL INFARCTION , OF INDETERMINATE AGE [40+ ms Q WAVE AND/OR ST/T ABNORMALITY IN II/aVF] ANTEROLATERAL MYOCARDIAL INFARCTION , OF INDETERMINATE AGE [40+ ms Q WAVE IN I/aVL/V3-V6] Compared to ECG 11/21/2019 15:02:14 T-wave abnormality no longer present Possible ischemia no longer present Myocardial infarct finding still present Electronically Signed On 08-06-2021 19:09:08 SONOSCOPE OPERATOR by Leanna Garcia M.D. [email or web address]
--- NOTE | 2021-08-06 13:10 | W.ED.COVID ---
HPI - COVID General: Chief Complaint: COVID symptoms Stated Complaint: Weakness, Headache Time Seen by Provider: 08/06/21 12:56 Source: patient Mode of arrival: other (with rolling walker) Limitations: no limitations Triage information: Has fever, cough or shortness of breath. No known COVID + exposure last 14 days History of Present Illness: HPI Narrative: Patient with complaints of cough productive of clear sputum mild subjective fever and vertigo symptoms since this morning upon awakening. Patient states she had a mild headache last night before going to bed but no other symptoms. States he has a minimal headache now but no focal weakness. States he has generalized fatigue. Present oxygen saturation is 99% on room air. Temperature in triage was 101.3. He states he has not received the COVID-vaccine. He has been vaccinated for flu. States he still smokes. Possible history includes ventricular fibrillation peripheral vascular disease, coronary disease, PR approximately 1 year ago. States he had a coronary stent about a year ago. States he also had a colostomy placed for an unknown reason about a year ago also. MD complaint: has COVID symptoms Prior covid testing: unknown if previously tested COVID 19 common symptoms: positive fever(s), cough, productive cough (Clear sputum), dyspnea, fatigue, body aches and headache(s); negative throat pain, nausea or vomiting COVID 19 other sytmptoms: negative chest pain or requiring oxygen Onset (ago): other (This a.m. upon awakening) Severity: mild Pertinent comorbid conditions: heart disease Treatment prior to arrival: none COVID Results: SARS-CoV-2 Antigen (Rapid) Positive (Negative) H 08/06/21 13:05 08/06/21 Review of Systems Const: Reports: fever(s), body aches, fatigue, malaise and diaphoresis Eyes: Denies: change in vision ENMT: Denies: throat pain Card: Denies: chest pain or palpitations Resp: Reports: dyspnea and productive cough (Clear sputum); Denies: wheezing GI: Denies: abdominal pain, nausea or vomiting : Denies: flank pain Musc: Denies: neck pain or back pain Skin/Breast: Denies: rash or pruritus Neuro: Reports: headache(s) and vertigo; Denies: numbness in extremities or weakness in extremities Psych: Denies: anxiety Murphy/Lymph: Denies: enlarged lymph nodes PFSH ED PFSH: Medical History COPD (chronic obstructive pulmonary disease) Coronary artery disease GERD (gastroesophageal reflux disease) Hx of ventricular fibrillation Hyperlipidemia Peripheral arterial occlusive disease STEMI (ST elevation myocardial infarction) Surgical History Hx of colostomy Hx of colostomy Family History Brother CAD (coronary artery disease) Cancer Diabetes Stroke Father Hypertension Denies family history of Clotting disorder Dementia Hyperlipidemia Psychiatric illness Chronic kidney disease (CKD) Suicide Anesthesia complication Bleeding disorder Family history of premature coronary artery disease Lung disease Social History Smoking and tobacco status: current every day smoker cigarettes Packs smoked per day: 0.75 Years cigarettes smoked: 60 Physical Exam Const: COMMON NORMALS: no acute distress, patient oriented x3, no limitations, alert and well nourished EXAM LIMITATIONS: altered mental status GENERAL APPEARANCE: cooperative OTHER: Patient is thin. He uses a rolling walker to ambulate. He walked down the north into the room. HENMT: COMMON NORMALS: normocephalic and atraumatic HEAD & SCALP: normocephalic and atraumatic FACE & SINUS: normal facial exam Eye: COMMON NORMALS: EOMs intact bilaterally Neck/C-Spine: COMMON NORMALS: full ROM, no lymphadenopathy, supple, no meningeal signs and no JVD GENERAL: Yes normal visual inspection Lymph: LYMPHATIC: no lymphadenopathy noted Chest: COMMONS NORMALS: normal inspection of the chest and normal palpation of entire chest wall CHEST: No Ecchymosis present and No rash Resp: COMMON NORMALS: normal respiratory effort (Oxygen saturation 99% on room air), No retractions, No use of accessory muscles and clear to auscultation bilaterally EFFORT & INSPECTION: No respiratory distress AUSCULTATION: clear to auscultation bilaterally Cardio: COMMON NORMALS: no JVD, regular rate, regular rhythm and Peripheral pulses 2+ throughout JUGULAR VENOUS DISTENTION: no JVD RATE: regular rate RHYTHM: regular rhythm PERIPHERAL PULSES: Peripheral pulses 2+ throughout GI: COMMON NORMALS: Normal to inspection, nondistended, normoactive bowel sounds present (Except colostomy bag on left side of the abdomen), Soft to palpation, non-tender and No hepatosplenomegaly present PALPATION: Yes Soft to palpation and Yes No hepatosplenomegaly present : COMMON NORMALS: Yes no CVA tenderness BLADDER/KIDNEY EXAM: Yes no CVA tenderness Back/Pelvis: COMMON NORMALS: no CVA tenderness Extremity: COMMON NORMALS: normal to inspection, full ROM and capillary refill normal Neuro: COMMON NORMALS: patient oriented x3, CN's II-XII intact bilaterally, moves all extremities, no focal motor deficits, no sensory deficits noted and deep tendon reflexes 2+ bilaterally SENSORIUM/ORIENTATION: Yes alert MENINGEAL SIGNS: Yes no meningeal signs Psych: COMMON NORMALS: mental status grossly normal and Normal thought process present THOUGHT PROCESS: Normal thought process present Skin: COMMON NORMALS: no rashes or lesions noted and no wounds GENERAL SKIN EXAM: no rashes or lesions noted Course Vital Signs: Vital signs: Vital Signs Temperature 101.3 F H 08/06/21 12:39 Pulse Rate 72 08/06/21 16:30 Respiratory Rate 20 H 08/06/21 16:30 Blood Pressure 107/59 08/06/21 16:30 Pulse Oximetry 92 08/06/21 16:30 MDM - COVID MDM Narrative: Medical decision making narrative: 1440: Due to patient's risk factors, will order monoclonal antibody. Patient gave verbal consent for infusion. 1728: Patient reassessed. Patient doing well. Oxygen saturation 95% on room air. Patient states he feels better. I did discuss with him his results of his labs including his transaminitis. He agreed to follow-up with his primary care doctor early next week. I did order hepatitis panel for him. Beds in the hospital are very limited. I believe patient meets criteria to try home care. I did encourage patient return if he worsened. Differential Diagnosis: Differential diagnosis: Likely COVID 19, influenza, other viral infection, bacterial infection and other (Vertigo) Lab Data: Attestation: I reviewed the patient's lab results. Labs: Lab Results 08/06/21 08/06/21 08/06/21 13:05 13:05 14:05 WBC 11.0 10^3/uL H 10 ^3/uL (4.0-10.0) RBC 4.52 10^6/uL 10^6 /uL (4.1-5.3) Hgb 14.1 g/dL g/dL (11.7-16.6) Hct 43.1 % % (42.0-52.0) MCV 95.4 fl H fl (80-94) MCH 31.2 pg pg (28.0-34.0) MCHC 32.7 g/dL g/dL (30.0-36.0) RDW 14.3 % % (12.1-15.1) Plt Count 219 10^3/cmm 10^3 /cmm (130-400) MPV 10.5 fL H fL (7.4-10.4) Neut % (Auto) 86.5 % % Lymph % (Auto) 7.3 % % Sutton % (Auto) 5.4 % % Eos % (Auto) 0.0 % % Baso % (Auto) 0.4 % % Neut # (Auto) 9.48 10^3/uL H 10 ^3/uL (1.8-7.7) Lymph # (Auto) 0.8 10^3/uL 10^3/ uL (0.8-4.8) Sutton # (Auto) 0.6 10^3/uL 10^3/ uL (0.2-0.9) Eos # (Auto) 0.0 10^3/uL 10^3/ uL (0.0-0.8) Baso # (Auto) 0.0 10^3/uL 10^3/ uL (0.0-0.1) Nucleated RBC % (a uto) 0 % % Nucleated RBCs # 0.0 /100WBC /100W BC Sodium Potassium Chloride Carbon Dioxide Anion Gap BUN Creatinine GFR Calculation Glucose Calculated Osmolal ity Lactic Acid Lactic Acid (Sepsi s) Calcium Total Bilirubin AST ALT Alkaline Phosphata se Troponin T Baselin e Troponin T [address] [place] Troponin T C-Reactive Protein NT-Pro-B Natriuret Pep Total Protein Albumin Globulin Procalcitonin Influenza Type A A g Negative (Negative) Influenza Type B A g Negative (Negative) SARS-CoV-2 Ag (Rap id) Positive H (Negative) 08/06/21 08/06/21 08/06/21 14:05 14:05 14:05 WBC RBC Hgb Hct MCV MCH MCHC RDW Plt Count MPV Neut % (Auto) Lymph % (Auto) Sutton % (Auto) Eos % (Auto) Baso % (Auto) Neut # (Auto) Lymph # (Auto) Sutton # (Auto) Eos # (Auto) Baso # (Auto) Nucleated RBC % (a uto) Nucleated RBCs # Sodium 134 mmol/L L mmol /L (136-145) Potassium 4.4 mmol/L mmol/L (3.5-5.1) Chloride 92 mmol/L L mmol/ L (98-107) Carbon Dioxide 23 mmol/L mmol/L (22-29) Anion Gap 23.4 H (5-19) BUN 18 mg/dL mg/dL (8-23) Creatinine 1.4 mg/dL H mg/dL (0.7-1.2) GFR Calculation 50.4 mL/min L mL/ min (90-130) Glucose 126 mg/dL H mg/dL (65-115) Calculated Osmolal ity 281 mOsm/kg L mOs m/kg (285-295) Lactic Acid 2.4 mmol/L H mmol /L (0.5-2.2) Lactic Acid (Sepsi s) Calcium 8.1 mg/dL L mg/dL (8.5-10.5) Total Bilirubin 0.9 mg/dL mg/dL (0.15-1.2) AST 1783 U/L H U/L (0-40) ALT 1595 U/L H U/L (0-41) Alkaline Phosphata se 153 IU/L H IU/L (40-130) Troponin T Baselin e 17 ng/L H ng/L (0-15) Troponin T [address] [place] Troponin T C-Reactive Protein 24.6 mg/L H mg/L (0.0-4.9) NT-Pro-B Natriuret Pep 1299 pg/mL H pg/m L (0-125) Total Protein 6.7 g/dL g/dL (6.6-8.7) Albumin 4.1 g/dL g/dL (3.5-5.2) Globulin 2.6 g/dL g/dL (1.3-4.6) Procalcitonin 0.37 ng/mL ng/mL (0-0.5) Influenza Type A A g Influenza Type B A g SARS-CoV-2 Ag (Rap id) 08/06/21 08/06/21 16:02 16:02 WBC RBC Hgb Hct MCV MCH MCHC RDW Plt Count MPV Neut % (Auto) Lymph % (Auto) Sutton % (Auto) Eos % (Auto) Baso % (Auto) Neut # (Auto) Lymph # (Auto) Sutton # (Auto) Eos # (Auto) Baso # (Auto) Nucleated RBC % (a uto) Nucleated RBCs # Sodium Potassium Chloride Carbon Dioxide Anion Gap BUN Creatinine GFR Calculation Glucose Calculated Osmolal ity Lactic Acid Lactic Acid (Sepsi s) 1.7 mmol/L mmol/L (0.5-2.2) Calcium Total Bilirubin AST ALT Alkaline Phosphata se Troponin T Baselin e Troponin T [address] [place] 21.61 ng/L H ng/L (0-15) Delta Troponin T 4.61 ABS# ABS# (0-10) C-Reactive Protein NT-Pro-B Natriuret Pep Total Protein Albumin Globulin Procalcitonin Influenza Type A A g Influenza Type B A g SARS-CoV-2 Ag (Rap id) Imaging Data: CXR: Attestation: I personally reviewed and interpreted this imaging study as follows: My impression: Mild COPD changes, chronic interstitial disease. Nothing acute. Radiologist's impression: Ordering Provider/Ordering MD: Summer Bhandari Date of Service: 08/06/21 Procedure(s): XR chest 1V portable [id number] Accession Number(s): [id number] Report Number: [id number] WS: [id number] Exam: XR chest 1V portable [id number] Date/Time of Exam: 08/06/2021 12:50 PM Reason For Exam: sob Comparison 11/21/2019. The lungs are fully expanded and clear. Normal cardiomediastinal structures and regional bony elements. Mild chronic interstitial changes. Slight levoscoliosis of the dorsal spine. XR/XR chest 1V portable [id number] IMPRESSION: 1. No acute cardiopulmonary finding. 2. Mild chronic interstitial changes. Dictated By:Albino Santo, DOSigned By:Albino Santo, DOSigned Date/Time:08/06/[address] Head: Radiologist's impression: Ordering Provider/Ordering MD: Moses Muniz MD Date of Service: 08/06/21 Procedure(s): CT head wo con* [id number] Accession Number(s): [id number] Report Number: [id number] WS: [id number] CT HEAD NONCONTRAST HISTORY: dizzy/vertigo started this am TECHNIQUE: Contiguous axial imaging performed through the brain in 2.5 mm imaging. Bone and soft tissue windows. Sagittal and coronal reformats reviewed. All CT scans at [facility] use at least one of these dose optimization techniques: automated exposure control; mA and/or kV adjustment per patient size (includes targeted exams where dose is matched to clinical indication); or iterative reconstruction. DLP: 1100.91 mGy.cm COMPARISON: None available. No acute intracranial hemorrhage, midline shift or mass effect. Moderate atrophy with extensive chronic white matter disease and multiple remote lacunar infarcts. Lacunar infarct in the RIGHT thalamus and smaller infarcts in the caudate head and external capsule. Ventricles: Mild ventriculomegaly on the basis of atrophy. Paranasal sinuses: As visualized are clear. Mastoid air cells: Well pneumatized. Calvarium and scalp: Skull is intact with no soft tissue edema or swelling. There is a mildly expansile bone lesion involving the RIGHT maxilla measuring 11 x 19 mm. There is bony expansion. This is not an acute lesion and does slightly across the midline. Odontogenic keratocyst within the differential. CT/CT head wo con* [id number] IMPRESSION: 1. No acute intracranial hemorrhage or edema. 2. Atrophy and extensive chronic white matter disease. Numerous chronic lacunar infarcts predominantly on the RIGHT. Dictated By:Jessica Puckett DOSigned By:Jessica Puckett DOSigned Date/Time:08/06/21 1411 EKG Data: EKG 1: Attestation: I personally reviewed and interpreted this EKG as follows: EKG interpretation date: 08/06/21 EKG interpretation time: 14:34 Interpretation: Normal sinus rhythm. Heart rate 91. Normal axis. Normal QRS. Anterior scar. Inferior Q waves. Nonspecific ST-T changes throughout. Normal T waves. Normal QT interval. COVID Results: SARS-CoV-2 Antigen (Rapid) Positive (Negative) H 08/06/21 13:05 08/06/21 Discharge Plan Discharge Patient Disposition: Home Clinical Impression: Vertigo, COVID-19 virus detected, Transaminitis COPD (chronic obstructive pulmonary disease) Qualifiers: COPD type: unspecified COPD Qualified Code(s): J44.9 - Chronic obstructive pulmonary disease, unspecified Fever Qualifiers: Fever type: unspecified Qualified Code(s): R50.9 - Fever, unspecified Condition: Stable Prescriptions: New meclizine 12.5 mg tablet 12.5 mg PO TID PRN (Reason: dizziness) Qty: 15 RF: 1 Decadron 4 mg tablet 4 mg PO DAILY Qty: 5 RF: 0 No Action metoprolol tartrate 25 mg tablet 25 mg PO DAILY RF: 0 cilostazol 50 mg tablet 50 mg PO BID Qty: 180 RF: 3 Miralax 17 gram Powder In Packet 17 g PO DAILY PRN (Reason: Constipation) RF: 0 Senna-S 8.6-50 mg Tablet 1 tab PO BID PRN (Reason: Constipation) RF: 0 Milk of Magnesia 400 mg/5 mL Suspension 30 ml PO PRN RF: 0 Colace 100 mg Capsule See Rx Instructions .ROUTE .COMPLEX RF: 0 furosemide 20 mg Tablet 20 mg PO DAILY RF: 0 albuterol sulfate 90 mcg/actuation Hfa Aerosol Inhaler 2 puff INHALATION Q6H PRN (Reason: Shortness Of Breath) RF: 0 Breo Ellipta 100-25 mcg/dose Blister With Device 1 inh INHALATION DAILY RF: 0 Pacerone 200 mg Tablet 200 mg PO DAILY Qty: 30 RF: 4 clopidogrel 75 mg Tablet 75 mg PO DAILY Qty: 90 RF: 4 Nitrostat 0.4 mg Tablet, Sublingual 0.4 mg sublingual Q5M PRN (Reason: Chest Pain) Qty: 30 RF: 4 Protonix 40 mg tablet,delayed release (DR/EC) 40 mg PO DAILY Qty: 30 RF: 4 Zocor 20 mg tablet 20 mg PO DAILY Qty: 30 RF: 4 Discharge Orders: Discharge ED (Routine); Ordered 08/06/21 Ordered By: Moses Muniz Referrals: Julio Cameron NP [Primary Care Provider] - (follow up in 1-3 days for recheck.) Discharge Diet: Advance as tolerated Discharge Activity: Increase activity as tolerated Patient Instructions: Vertigo (ED), Droplet Precautions (ED), COVID-19 (Coronavirus Disease 2019) (ED), How to Recover from COVID-19 at Home (ED), Opioid Safety Activity Restrictions/Additional Instructions: Rest. You received monoclonal antibody infusion for COVID today. Return if worse. Your symptoms are likely due to COVID. Take meclizine as needed for dizziness. Drink plenty of fluids. You also have elevation of your liver enzymes. You will need to have this rechecked next week. Coding Level of Care Code ED [facility] Fwd Exam Comprehensive
[2021-08-06 13:45] VITALS: PULSE 97; RESP 24; O2SAT 93
[2021-08-06] MEDS: acetaminophen 325 mg Tablet 650 MG PO (14:03)
[2021-08-06 14:08] LABS: Basophils % 0.4 %; Hematocrit 43.1 % (42.0-52.0); Hemoglobin 14.1 g/dL (11.7-16.6); Lymphocytes # 0.8 10^3/uL (0.8-4.8); Lymphocytes % 7.3 %; Mean Corpuscular HGB Conc 32.7 g/dL (30.0-36.0); Mean Corpuscular Hemoglobin 31.2 pg (28.0-34.0); Mean Corpuscular Volume 95.4 fl (80-94); Mean Platelet Volume 10.5 fL (7.4-10.4); Monocytes # 0.6 10^3/uL (0.2-0.9); Monocytes % 5.4 %; Neutrophils # 9.48 10^3/uL (1.8-7.7); Neutrophils % 86.5 %; Nucleated Red Blood Cells % 0 %; Platelet Count 219 10^3/cmm (130-400); Red Blood Count 4.52 10^6/uL (4.1-5.3); Red Cell Distribution Width 14.3 % (12.1-15.1)
[2021-08-06 14:26] LABS: Lactic Sepsis W/Reflex 2.4 mmol/L (0.5-2.2)
[2021-08-06 14:27] LABS: Troponin(5th) Baseline 17 ng/L (0-15)
[2021-08-06 14:30] LABS: Influenza A by IFA Negative (Negative); Influenza B by IFA Negative (Negative); SARS Covid-2 Antigen Positive (Negative)
[2021-08-06 14:37] LABS: NT Pro B Type Natriuretic Pept 1299 pg/mL (0-125); Procalcitonin 0.37 ng/mL (0-0.5)
[2021-08-06 14:49] LABS: Albumin Level 4.1 g/dL (3.5-5.2); Alkaline Phosphatase 153 IU/L (40-130); Anion Gap 23.4 (5-19); Blood Urea Nitrogen 18 mg/dL (8-23); C Reactive Protein 24.6 mg/L (0.0-4.9); Calcium 8.1 mg/dL (8.5-10.5); Carbon Dioxide 23 mmol/L (22-29); Chloride 92 mmol/L (98-107); Globulin 2.6 g/dL (1.3-4.6); Glomerular Filtration Rate 50.4 mL/min (90-130); Glucose 126 mg/dL (65-115); Osmolality Calculated 281 mOsm/kg (285-295); Potassium 4.4 mmol/L (3.5-5.1); Sodium 134 mmol/L (136-145); Total Bilirubin 0.9 mg/dL (0.15-1.2); Total Protein 6.7 g/dL (6.6-8.7)
[2021-08-06 15:00] LABS: Alanine Aminotransferase 1595 U/L (0-41)
[2021-08-06 15:03] LABS: Aspartate Amino Transferase 1783 U/L (0-40)
[2021-08-06 15:54] LABS: Reflex Lactate Order REFLEX LACTIC ORDERD
[2021-08-06] MEDS: meclizine 25 mg tablet PO (16:03)
[2021-08-06 16:30] VITALS: BP 107/59; PULSE 72; RESP 20; O2SAT 92
[2021-08-06 16:43] LABS: Lactic Acid level (Lactate) 1.7 mmol/L (0.5-2.2)
[2021-08-06 16:44] LABS: Troponin 5 2HR 21.61 ng/L (0-15); Troponin 5 2HR Delta 4.61 ABS# (0-10)
[2021-08-06 17:40] LABS: Hepatitis A Antibody IgM Non-Reactive (Nonreactive)
[2021-08-06 18:01] VITALS: BP 140/60; PULSE 20; RESP 83; O2SAT 95
[2021-08-06 22:08] LABS: Hepatitis B Core IgM Non-Reactive (Nonreactive); Hepatitis B Surface Antigen Non-Reactive (Nonreactive); Hepatitis C Virus Antibody Non-Reactive (Nonreactive)
== END 2021-08-06 18:10 | disposition home or self-care (01) ==
PROVIDERS: Physician Assistant; Emergency Provider Family Medicine; PCP Nurse Practitioner Family
DX: U07.1 COVID-19 (principal); R42 Dizziness and giddiness; J44.9 Chronic obstructive pulmonary disease, unspecified; R74.01 Elevation of levels of liver transaminase levels; Z79.02 Long term (current) use of antithrombotics/antiplatelets; I25.10 Atherosclerotic heart disease of native coronary artery without angina pectoris; E78.5 Hyperlipidemia, unspecified; I25.2 Old myocardial infarction; F17.210 Nicotine dependence, cigarettes, uncomplicated
CPT/HCPCS: 36415; 70450; 71045; 80053; 80074; 83605; 83880; 84145; 84484; 85025; 86140; 87426; 87804; 93005; 96365; 99284; J8597